=== PATIENT | female | born 1990 | race Caucasian/White ===

== ENCOUNTER 2021-10-09 23:02 | Emergency (ER) | payer OTHER ==
[~2021-10-09] VITALS: Ht 188 cm; Wt 90.7 kg
[2021-10-09] MEDS ORDERED: FINASTERIDE1 MG PO (23:32)
[2021-10-09] MEDS ORDERED: ALDACTONE100 MG PO (23:32)
[2021-10-09] MEDS ORDERED: ESTR2 PO (23:32)
[2021-10-09] MEDS ORDERED: VITAMIN D310 MC4 (23:33)
[2021-10-10 00:01] LABS: BASOPHILS ABSOLUTE AUTO 0.06 K/mm3 (0.00-0.23); BASOPHILS PERCENT AUTO 1 % (0-2); EOSINOPHILS ABSOLUTE AUTO 0.12 K/mm3 (0.00-0.68); EOSINOPHILS PERCENT AUTO 1 % (0-6); Hematocrit 35.4 % (33.0-51.0); Hemoglobin 11.6 g/dL (11.5-16.0); IMMATURE GRAN ABSOLUTE AUTO 0.03 K/mm3 (0.00-0.10); IMMATURE GRAN PERCENT AUTO 0 % (0-1); LYMPHOCYTES ABSOLUTE AUTO 2.13 K/mm3 (0.84-5.20); LYMPHOCYTES PERCENT AUTO 19 % (21-46); MONOCYTES ABSOLUTE AUTO 0.71 K/mm3 (0.16-1.47); MONOCYTES PERCENT AUTO 6 % (4-13); Mean Corpuscular HGB 30.2 pg (26.0-34.0); Mean Corpuscular HGB Conc 32.8 g/dL (31.5-36.5); Mean Corpuscular Volume 92 fL (80-100); Mean Platelet Volume 10.1 fL (9.1-12.4); NEUTROPHILS ABSOLUTE AUTO 8.17 K/mm3 (1.96-9.15); NEUTROPHILS PERCENT AUTO 73 % (41-73); Platelet Count 341 K/mm3 (150-400); RDW Coefficient Variation 15.2 % (11.7-14.2); RDW Standard Deviation 51.9 fL (35.1-46.3); Red Blood Cell Count 3.84 M/mm3 (3.80-5.20); White Blood Cell Count 11.22 K/mm3 (4.00-11.30)
[2021-10-10 00:21] LABS: Alanine Aminotransfer (ALT/SGP 29 U/L (12-78); Albumin, Blood 3.8 g/dL (3.4-5.0); Alk Phos 382 U/L (50-136); Anion Gap 9 mmol/L (6-16); Aspartate Aminotrans (AST/SGOT 14 U/L (12-37); Bilirubin, Total 0.5 mg/dL (0.1-1.0); Blood Urea Nitrogen 12 mg/dL (8-24); Bun/Creatinine Ratio 16.9 (12.0-20.0); CO2, Blood 24 mmol/L (21-32); Calcium, Blood 9.6 mg/dL (8.5-10.1); Chloride, Blood 103 mmol/L (98-108); Creatinine, Blood 0.71 mg/dL (0.40-1.00); Globulin, Blood 3.7 g/dL (2.2-4.0); Glomerular Filtration Rate >60 (60-); Glucose, Blood 117 mg/dL (70-99); Potassium, Blood 3.9 mmol/L (3.5-5.5); Sodium, Blood 136 mmol/L (136-145); Total Protein, Blood 7.5 g/dL (6.4-8.2)
[2021-10-10 00:26] LABS: Source, Urine Clean Catch
[2021-10-10 00:28] LABS: Appearance, Urine Clear (Clear); Bilirubin, Urine Neg (Neg); Blood, Urine Neg (Neg); Color, Urine Yellow (P-Yellow); Glucose Qualitative, Urine Neg (Neg); Ketones, Urine Neg (Neg); Leukocyte Esterase, Urine Neg (Neg); Nitrite, Urine Neg (Neg); Protein, Urine Neg (Neg); Specific Gravity, Urine 1.005 (1.003-1.022); Urobilinogen, Urine NORM (Normal); pH, Urine 6.5 (5.0-8.0)
== END 2021-10-10 00:51 | disposition home or self-care (01) ==
LOC: ER 23:02
PROVIDERS: Physician Assistant
DX: R33.9 Retention of urine, unspecified (principal)
CPT/HCPCS: 51702; 51798; 80053; 81003; 85025; 99283-25

== ENCOUNTER 2021-10-12 20:13 | Emergency (ER) | payer OTHER ==
[~2021-10-12] VITALS: Ht 188 cm; Wt 87.1 kg
[~2021-10-12 20:13] MED LIST: ALDACTONE100 MG PO; ESTR2 PO; FINASTERIDE1 MG PO; VITAMIN D310 MC4
[2021-10-12 21:26] LABS: Source, Urine Foley catheter
[2021-10-12 21:28] LABS: Bilirubin, Urine Neg (Neg); Blood, Urine 2+ (Neg); Glucose Qualitative, Urine Neg (Neg); Ketones, Urine 1+ (Neg); Leukocyte Esterase, Urine 2+ (Neg); Nitrite, Urine Neg (Neg); Protein, Urine 1+ (Neg); Specific Gravity, Urine 1.025 (1.003-1.022); Urobilinogen, Urine NORM (Normal)
[2021-10-12 21:33] LABS: Appearance, Urine Clear (Clear); Color, Urine Yellow (P-Yellow)
[2021-10-12 21:34] LABS: Amorphous Light (0-Heavy); Bacteria Few /hpf; Mucus Light (0-Heavy); Squamous Epithelial Cells Rare /hpf (Few)
== END 2021-10-12 22:05 | disposition home or self-care (01) ==
LOC: ER 20:13
PROVIDERS: Physician Assistant
DX: T83.091A Other mechanical complication of indwelling urethral catheter, initial encounter (principal); I95.9 Hypotension, unspecified; I50.9 Heart failure, unspecified; Z79.899 Other long term (current) drug therapy
CPT/HCPCS: 81001; 87086; 99283

== ENCOUNTER 2021-10-14 03:03 | Emergency (ER) | payer OTHER ==
[~2021-10-14] VITALS: Ht 188 cm; Wt 90.7 kg
[2021-10-14 03:17] LABS: Source, Urine Voided
[2021-10-14 03:29] LABS: Bilirubin, Urine Neg (Neg); Blood, Urine Neg (Neg); Glucose Qualitative, Urine Neg (Neg); Ketones, Urine 1+ (Neg); Leukocyte Esterase, Urine Neg (Neg); Nitrite, Urine Neg (Neg); Protein, Urine 1+ (Neg); Specific Gravity, Urine 1.015 (1.003-1.022); Urobilinogen, Urine 1+ (Normal)
[2021-10-14 03:36] LABS: Appearance, Urine Clear (Clear); Color, Urine Yellow (P-Yellow)
[2021-10-14] MEDS ORDERED: Miralax17 GM PO (03:46)
[2021-10-14] MEDS ORDERED: Fleet Enema132 ML PR (03:46)
[2021-10-14] MEDS ORDERED: Pyridium100 MG PO (03:46)
[2021-10-18] MEDS ORDERED: DOC250 PO (00:09)
[2021-10-18] MEDS ORDERED: MIRALAX17 GM PO (00:09)
[2021-10-18] MEDS ORDERED: MAGCIT300 PO (00:09)
[2021-10-18] MEDS ORDERED: SENNA LAXATIVE8.6 MG PO (00:09)
== END 2021-10-14 05:32 | disposition home or self-care (01) ==
LOC: ER 03:03
PROVIDERS: Emergency Medicine
DX: K59.03 Drug induced constipation (principal); T40.605A Adverse effect of unspecified narcotics, initial encounter; R30.0 Dysuria
CPT/HCPCS: 99283; A9270

== ENCOUNTER 2021-10-18 07:28 | Emergency (ER) | payer OTHER ==
[~2021-10-18] VITALS: Ht 188 cm; Wt 87.1 kg
[~2021-10-18 07:28] MED LIST changes: +DOC250 PO; +Fleet Enema132 ML PR; +MAGCIT300 PO; +MIRALAX17 GM PO; +Miralax17 GM PO; +Pyridium100 MG PO; +SENNA LAXATIVE8.6 MG PO
== END 2021-10-18 09:50 | disposition home or self-care (01) ==
LOC: ER 07:28
DX: R33.9 Retention of urine, unspecified (principal); I95.9 Hypotension, unspecified; I50.9 Heart failure, unspecified; Z79.899 Other long term (current) drug therapy
CPT/HCPCS: 51702; 51798; 99283-25

== ENCOUNTER → 2021-10-24 | Outpatient (CLI) | payer OTHER ==
[~2021-10-24] MED LIST changes: +DOXY100 PO; +ELIQUIS2.5 M1 PO; +FLUO10 PO; +SPIRONOLACTONE25 MG PO; +TAMSULOSIN HCL0.4 M1 PO; +VITAMIN D310 MC4 PO
== END | disposition home or self-care (01) ==
LOC: LAB SHORT 14:37
DX: L08.9 Local infection of the skin and subcutaneous tissue, unspecified (principal)
CPT/HCPCS: 87070; 87205

== ENCOUNTER 2021-10-25 23:21 | Observation (INO) | payer OTHER ==
[~2021-10-25] VITALS: Ht 188 cm; Wt 85.3 kg
[~2021-10-25 23:21] MED LIST changes: -DOXY100 PO; -ELIQUIS2.5 M1 PO; -FLUO10 PO; -SPIRONOLACTONE25 MG PO; -TAMSULOSIN HCL0.4 M1 PO; -VITAMIN D310 MC4 PO
[2021-10-26 00:23] LABS: BASOPHILS ABSOLUTE AUTO 0.04 K/mm3 (0.00-0.23); BASOPHILS PERCENT AUTO 1 % (0-2); EOSINOPHILS ABSOLUTE AUTO 0.08 K/mm3 (0.00-0.68); EOSINOPHILS PERCENT AUTO 1 % (0-6); Hematocrit 38.3 % (33.0-51.0); Hemoglobin 12.1 g/dL (11.5-16.0); IMMATURE GRAN ABSOLUTE AUTO 0.01 K/mm3 (0.00-0.10); IMMATURE GRAN PERCENT AUTO 0 % (0-1); LYMPHOCYTES ABSOLUTE AUTO 1.78 K/mm3 (0.84-5.20); LYMPHOCYTES PERCENT AUTO 24 % (21-46); MONOCYTES ABSOLUTE AUTO 0.52 K/mm3 (0.16-1.47); MONOCYTES PERCENT AUTO 7 % (4-13); Mean Corpuscular HGB 30.3 pg (26.0-34.0); Mean Corpuscular HGB Conc 31.6 g/dL (31.5-36.5); Mean Corpuscular Volume 96 fL (80-100); Mean Platelet Volume 10.7 fL (9.1-12.4); NEUTROPHILS ABSOLUTE AUTO 5.08 K/mm3 (1.96-9.15); NEUTROPHILS PERCENT AUTO 68 % (41-73); Platelet Count 269 K/mm3 (150-400); RDW Coefficient Variation 14.3 % (11.7-14.2); RDW Standard Deviation 50.4 fL (35.1-46.3); Red Blood Cell Count 3.99 M/mm3 (3.80-5.20); White Blood Cell Count 7.51 K/mm3 (4.00-11.30)
[2021-10-26 00:49] LABS: Alanine Aminotransfer (ALT/SGP 22 U/L (12-78); Albumin, Blood 3.8 g/dL (3.4-5.0); Albumin/Globulin Ratio 1.1 (0.8-1.8); Alk Phos 221 U/L (50-136); Anion Gap 9 mmol/L (6-16); Aspartate Aminotrans (AST/SGOT 9 U/L (12-37); Bilirubin, Total 0.2 mg/dL (0.1-1.0); Blood Urea Nitrogen 7 mg/dL (8-24); CO2, Blood 21 mmol/L (21-32); Chloride, Blood 108 mmol/L (98-108); Creatinine, Blood 0.77 mg/dL (0.40-1.00); Ethanol (Alcohol), Blood, Med <3 mg/dL; Globulin, Blood 3.6 g/dL (2.2-4.0); Glomerular Filtration Rate >60 (60-); Glucose, Blood 133 mg/dL (70-99); Potassium, Blood 3.2 mmol/L (3.5-5.5); Salicylate 22.3 mg/dL (2.8-20.0); Sodium, Blood 138 mmol/L (136-145); Total Protein, Blood 7.4 g/dL (6.4-8.2)
[2021-10-26 00:50] LABS: Acetaminophen, Random 52.5 ug/mL (10.0-30.0)
[2021-10-26 01:08] LABS: Source, Urine Voided
[2021-10-26 01:12] LABS: Bilirubin, Urine Neg (Neg); Blood, Urine Neg (Neg); Glucose Qualitative, Urine Neg (Neg); Ketones, Urine Neg (Neg); Leukocyte Esterase, Urine Neg (Neg); Nitrite, Urine Neg (Neg); Protein, Urine Neg (Neg); Urobilinogen, Urine NORM (Normal)
[2021-10-26 01:15] LABS: Appearance, Urine Clear (Clear); Color, Urine Pale Yellow (P-Yellow)
[2021-10-26 01:23] LABS: U Amphetamine Screen Not Detected; U Barbituate Screen Not Detected; U Benzodiazapine Screen Not Detected; U Buprenorphine Screen Not Detected; U Cannabinoids Screen Not Detected; U Cocaine Screen Not Detected; U Methadone Screen Not Detected; U Methamphetamine Screen Not Detected; U Opiates Screen Not Detected; U Oxycodone Screen Not Detected; U Phencyclidine Screen Not Detected; U Propoxyphene Screen Not Detected
[2021-10-26 02:34] LABS: Acetaminophen, Random 28.2 ug/mL (10.0-30.0); Salicylate 19.9 mg/dL (2.8-20.0)
[2021-10-26 06:20] LABS: Influenza A, PCR NEGATIVE (NEGATIVE); Influenza B, PCR NEGATIVE (NEGATIVE); Resp Syncytial Virus, PCR NEGATIVE (NEGATIVE); SARS-Cov-2 (COVID-19) PCR, MMC NEGATIVE (NEGATIVE)
[2021-10-26] MEDS ORDERED: DOXY100 PO (08:39)
[2021-10-27] MEDS ORDERED: Pyridium100 MG PO (01:49)
[2021-10-27] MEDS ORDERED: TAMSULOSIN HCL0.4 M1 PO (01:50)
[2021-10-27] MEDS ORDERED: ELIQUIS2.5 M1 PO (01:50)
[2021-10-27] MEDS ORDERED: SPIRONOLACTONE25 MG PO (01:50)
[2021-10-27] MEDS ORDERED: FLUO10 PO (01:50)
[2021-10-27] MEDS ORDERED: VITAMIN D310 MC4 PO (01:50)
== END 2021-10-27 15:47 ==
LOC: ER 23:21 → EOR 23:22
PROVIDERS: ADMIT Emergency Medicine
DX: F33.2 Major depressive disorder, recurrent severe without psychotic features (principal); T39.1X2A Poisoning by 4-Aminophenol derivatives, intentional self-harm, initial encounter; F42.9 Obsessive-compulsive disorder, unspecified; F41.1 Generalized anxiety disorder; I50.9 Heart failure, unspecified; Z20.822 Contact with and (suspected) exposure to COVID-19
CPT/HCPCS: 0241U; 51701; 80053; 81003; 85025; 86592; 99285-25; A9270; G0378; G0480; Q3014

== ENCOUNTER 2021-11-10 21:28 | Inpatient (IN) | payer OTHER ==
[~2021-11-10] VITALS: Ht 188 cm; Wt 85.4 kg
[~2021-11-10 21:28] MED LIST changes: +DOXY100 PO; +ELIQUIS2.5 M1 PO; +FLUO10 PO; +SPIRONOLACTONE25 MG PO; +TAMSULOSIN HCL0.4 M1 PO; +VITAMIN D310 MC4 PO
[2021-11-10 21:49] LABS: BASOPHILS ABSOLUTE AUTO 0.06 K/mm3 (0.00-0.23); BASOPHILS PERCENT AUTO 1 % (0-2); EOSINOPHILS ABSOLUTE AUTO 0.03 K/mm3 (0.00-0.68); EOSINOPHILS PERCENT AUTO 0 % (0-6); Hematocrit 40.7 % (33.0-51.0); Hemoglobin 13.3 g/dL (11.5-16.0); IMMATURE GRAN ABSOLUTE AUTO 0.02 K/mm3 (0.00-0.10); IMMATURE GRAN PERCENT AUTO 0 % (0-1); LYMPHOCYTES ABSOLUTE AUTO 1.48 K/mm3 (0.84-5.20); LYMPHOCYTES PERCENT AUTO 17 % (21-46); MONOCYTES ABSOLUTE AUTO 0.56 K/mm3 (0.16-1.47); MONOCYTES PERCENT AUTO 6 % (4-13); Mean Corpuscular HGB 30.2 pg (26.0-34.0); Mean Corpuscular HGB Conc 32.7 g/dL (31.5-36.5); Mean Corpuscular Volume 93 fL (80-100); Mean Platelet Volume 10.3 fL (9.1-12.4); NEUTROPHILS ABSOLUTE AUTO 6.57 K/mm3 (1.96-9.15); NEUTROPHILS PERCENT AUTO 75 % (41-73); Platelet Count 307 K/mm3 (150-400); RDW Coefficient Variation 14.1 % (11.7-14.2); RDW Standard Deviation 47.8 fL (35.1-46.3); White Blood Cell Count 8.72 K/mm3 (4.00-11.30)
[2021-11-10 22:19] LABS: Alanine Aminotransfer (ALT/SGP 25 U/L (12-78); Albumin/Globulin Ratio 1.1 (0.8-1.8); Alk Phos 162 U/L (50-136); Anion Gap 12 mmol/L (6-16); Aspartate Aminotrans (AST/SGOT 18 U/L (12-37); Bilirubin, Total 0.2 mg/dL (0.1-1.0); Blood Urea Nitrogen 11 mg/dL (8-24); Bun/Creatinine Ratio 15.1 (12.0-20.0); CO2, Blood 20 mmol/L (21-32); Calcium, Blood 8.9 mg/dL (8.5-10.1); Chloride, Blood 104 mmol/L (98-108); Creatinine, Blood 0.73 mg/dL (0.40-1.00); Ethanol (Alcohol), Blood, Med 24 mg/dL; Globulin, Blood 3.7 g/dL (2.2-4.0); Glomerular Filtration Rate >60 (60-); Glucose, Blood 104 mg/dL (70-99); Potassium, Blood 3.9 mmol/L (3.5-5.5); Salicylate 26.7 mg/dL (2.8-20.0); Sodium, Blood 136 mmol/L (136-145); Thyroxine (T4) 10.2 ug/dL (4.8-13.9); Total Protein, Blood 7.7 g/dL (6.4-8.2)
[2021-11-10 22:21] LABS: Source, Urine Condom Cath
[2021-11-10 22:22] LABS: Acetaminophen, Random <2.0 ug/mL (10.0-30.0)
[2021-11-10 22:41] LABS: Bilirubin, Urine Neg (Neg); Blood, Urine Neg (Neg); Glucose Qualitative, Urine Neg (Neg); Ketones, Urine Neg (Neg); Leukocyte Esterase, Urine Neg (Neg); Nitrite, Urine Neg (Neg); Protein, Urine Neg (Neg); Urobilinogen, Urine NORM (Normal)
[2021-11-10 22:43] LABS: Base Excess Venous -3.3 mmol/L; Bicarbonate Venous 22.6 mmol/L (24.0-30.0); PCO2 Venous 29.4 mmHg (38-42); PO2 Venous 130 mmHg (38-42); pH Blood Venous 7.45 (7.34-7.37)
[2021-11-10 22:46] LABS: Appearance, Urine Clear (Clear); Color, Urine Yellow (P-Yellow)
[2021-11-10 22:53] LABS: U Amphetamine Screen Not Detected; U Barbituate Screen Not Detected; U Benzodiazapine Screen Not Detected; U Buprenorphine Screen Not Detected; U Cannabinoids Screen Not Detected; U Cocaine Screen Not Detected; U Methadone Screen Not Detected; U Methamphetamine Screen Not Detected; U Opiates Screen Not Detected; U Oxycodone Screen Not Detected; U Phencyclidine Screen Not Detected; U Propoxyphene Screen Not Detected
[2021-11-11 02:08] LABS: Anion Gap 7 mmol/L (6-16); Blood Urea Nitrogen 11 mg/dL (8-24); Bun/Creatinine Ratio 14.6 (12.0-20.0); CO2, Blood 22 mmol/L (21-32); Calcium, Blood 8.9 mg/dL (8.5-10.1); Chloride, Blood 107 mmol/L (98-108); Creatinine, Blood 0.75 mg/dL (0.40-1.00); Glomerular Filtration Rate >60 (60-); Glucose, Blood 107 mg/dL (70-99); Potassium, Blood 4.2 mmol/L (3.5-5.5); Sodium, Blood 136 mmol/L (136-145)
[2021-11-11 02:41] LABS: Base Excess Venous -2.3 mmol/L; Bicarbonate Venous 22.8 mmol/L (24.0-30.0)
--- NOTE | 2021-11-11 03:20 | NUR ---
ASSUMED CARE THIS RN ASSUMED CARE FOR THIS PATIENT UPON ARRIVAL TO ICU 9 @ 0320. BICARB AND KCL GTT AND UNOPENED LIQUID CHARCOAL ARRIVED WITH PATIENT. ROOM CLEARED OF HAZARDS AND 1:1 SITTER SET UP. PATIENT A&O X 3/3. FOLLOWS COMMANDS AND TRANSFERS ON OWN TO BED. CURRENTLY COMPLAINING OF NAUSEA. DENIES PAIN. NSR. REPORT COMPLETED WITH ED RN.
[2021-11-11 04:17] LABS: BASOPHILS ABSOLUTE AUTO 0.06 K/mm3 (0.00-0.23); BASOPHILS PERCENT AUTO 1 % (0-2); EOSINOPHILS ABSOLUTE AUTO 0.01 K/mm3 (0.00-0.68); EOSINOPHILS PERCENT AUTO 0 % (0-6); Hematocrit 39.5 % (33.0-51.0); Hemoglobin 12.9 g/dL (11.5-16.0); IMMATURE GRAN ABSOLUTE AUTO 0.03 K/mm3 (0.00-0.10); IMMATURE GRAN PERCENT AUTO 0 % (0-1); LYMPHOCYTES ABSOLUTE AUTO 1.98 K/mm3 (0.84-5.20); LYMPHOCYTES PERCENT AUTO 20 % (21-46); MONOCYTES ABSOLUTE AUTO 0.64 K/mm3 (0.16-1.47); MONOCYTES PERCENT AUTO 6 % (4-13); Mean Corpuscular HGB 29.9 pg (26.0-34.0); Mean Corpuscular HGB Conc 32.7 g/dL (31.5-36.5); Mean Corpuscular Volume 92 fL (80-100); Mean Platelet Volume 10.2 fL (9.1-12.4); NEUTROPHILS ABSOLUTE AUTO 7.41 K/mm3 (1.96-9.15); NEUTROPHILS PERCENT AUTO 73 % (41-73); Platelet Count 292 K/mm3 (150-400); RDW Coefficient Variation 14.1 % (11.7-14.2); RDW Standard Deviation 47.9 fL (35.1-46.3); Red Blood Cell Count 4.31 M/mm3 (3.80-5.20); White Blood Cell Count 10.13 K/mm3 (4.00-11.30)
[2021-11-11 04:33] LABS: pH Blood Venous 7.47 (7.34-7.37)
[2021-11-11 04:34] LABS: Base Excess Venous -1.8 mmol/L; Bicarbonate Venous 23.7 mmol/L (24.0-30.0); PCO2 Venous 30.2 mmHg (38-42); PO2 Venous 179 mmHg (38-42)
[2021-11-11 04:56] LABS: Alanine Aminotransfer (ALT/SGP 21 U/L (12-78); Albumin, Blood 3.7 g/dL (3.4-5.0); Albumin/Globulin Ratio 1.1 (0.8-1.8); Alk Phos 154 U/L (50-136); Anion Gap 7 mmol/L (6-16); Aspartate Aminotrans (AST/SGOT 11 U/L (12-37); Bilirubin, Total 0.2 mg/dL (0.1-1.0); Blood Urea Nitrogen 10 mg/dL (8-24); Bun/Creatinine Ratio 12.9 (12.0-20.0); CO2, Blood 22 mmol/L (21-32); Calcium, Blood 8.8 mg/dL (8.5-10.1); Chloride, Blood 109 mmol/L (98-108); Creatinine, Blood 0.78 mg/dL (0.40-1.00); Globulin, Blood 3.4 g/dL (2.2-4.0); Glomerular Filtration Rate >60 (60-); Glucose, Blood 116 mg/dL (70-99); Potassium, Blood 3.7 mmol/L (3.5-5.5); Sodium, Blood 138 mmol/L (136-145); Total Protein, Blood 7.1 g/dL (6.4-8.2)
--- NOTE | 2021-11-11 07:27 | NUR ---
SHIFT SUMMARY PATIENT REMAINS ON BICARB 150MEQ GTT @ 200ML/HR. PATIENT SLEPT FOR REMAINDER OF SHIFT AFTER ASSESSMENT COMPLETED. STAND BY ASSIST TRANSFERRED TO BEDSIDE COMMODE ONCE WITH 275ML URINE OUT. ONE EPISODE OF VOMITING UPON ARRIVAL TO ICU FROM ED. ZOFRAN 4MG IV GIVEN WITH RESOLUTION OF NAUSEA AND VOMITING. ROOM WAS CLEARED OF HAZARDS AND PLACED ON 1:1 OBSERVATION BY STAFF. POISON CONTROL CONTACTED AND RECOMMENDATIONS RECEIVED AND PLACED IN CHART. DR. RAMON CALLED THIS MORNING WITH NEW ORDERS FOR LIQUID CHARCOAL PO ONCE AND KCL 40MEQ IV; CONFIRMED HE PLACED THE ORDERS. NO OTHER MAJOR CHANGES DURING SHIFT.
--- NOTE | 2021-11-11 08:03 | NUR ---
DR. RAMON UPDATED VIA TELEPHONE OF POISON CONTROLS PHARMACIST RECOMENDATIONS OF ADDING 40MEQ OF POTASSIUM INTO BICARB DRIP AND TO CHECK URINE PH'S.
[2021-11-11 08:18] LABS: Bicarbonate Venous 26.7 mmol/L (24.0-30.0); pH Blood Venous 7.51 (7.34-7.37)
--- NOTE | 2021-11-11 09:52 | NUR ---
DR. RAMON NOTIFIED OF INCORRECT HOME MED DOSES ORDERED. HEAD BANDER AND LINER OPERATOR NOTIFIED OF PYXIS NOT BEING LOADED WITH MEDS. POISON CONTROL UPDATED ON 0800 LABS AND CURRENT INTERVENTIONS RUNNING, THEY ARE RECOMENDING TO STOP BICARB DRIP AFTER ASPRIN LEVEL REACHES LESS THAN 30, THEN NOTE THE TIME. THEY ARE ALSO RECOMENDING TO REPEAT LEVELS OF ASPIRIN AT 6 AND 12 HOURS POST BICARB DRIP STOP TIME DUE TO RISK OF THE ASPIRIN CLUMBING IN THE GI TRACT AND RELEASING MORE LATER. 0800 LABS K 3.7 ASA 31.1 VBG pH 7.51 VBG HCO3 26
--- NOTE | 2021-11-11 10:41 | NUR ---
BICARB STOPPED AT 1040
[2021-11-11 12:16] LABS: Base Excess Venous 3.2 mmol/L; Bicarbonate Venous 27.7 mmol/L (24.0-30.0); PCO2 Venous 32.1 mmHg (38-42); pH Blood Venous 7.52 (7.34-7.37)
--- NOTE | 2021-11-11 12:34 | NUR ---
PRECOMMITMENT SENIOR DIRECTOR UPDATED, WILL COME ASSESS PATIENT 11/12/21
--- NOTE | 2021-11-11 17:06 | NUR ---
SUMMARY PT ON ROOM AIR, NO LONGER EXPERIENCING RINGING IN THE EARS. 100 MEQ OF POTASSIUM REPLACEMENT TODAY. AOX4, PT AT BASELINE. NOT ACTIVELY SUICIDAL, DECREASED TO MODERATE SI RISK, CAMERA ON. RECOMENDATIONS FOR INPATIENT PSYCH BY JENNIFER. BICARB DRIP STOPPED AT 1040. POISON CONTROL TO CALL AND ASK FOR LAST ASA RESULTS AT 2300 TONIGHT.
[2021-11-11 17:29] LABS: Base Excess Venous 2.4 mmol/L; Bicarbonate Venous 27.1 mmol/L (24.0-30.0); PCO2 Venous 30.7 mmHg (38-42); pH Blood Venous 7.52 (7.34-7.37)
--- NOTE | 2021-11-11 20:00 | NUR ---
ASSUMPTION OF CARE RECEIVED REPORT AT 1900. PT CURRENTLY SITTING UP AT BEDSIDE EATING DINNER. VSS. SHE DENIES ANY THOUGHTS OF SUICIDE AT THIS TIME, BUT DOES THINK ABOUT HURTING HERSELF OFTEN. SHE STATES SHE LIKES BEING IN THE HOSPITAL BECAUSE SHE FEELS SAFE. MOST RECENT SALICYLATE LEVEL OF 8.3 AND POTASSIUM OF 4.0. PER POISON CONTROL, WE WILL REPEAT LEVELS IN 2 HOURS AND ADMINISTER ANOTHER DOSE OF ACTIVATED CHARCOAL. PT IS ABLE TO AMBULATE IN ROOM INDEPENDENTLY, STEADY GAIT. SHE IS A/O X4, PLEASANT AND COOPERATIVE, AND ABLE TO COMMUNICATE NEEDS WELL. USING BEDSIDE COMMODE INDEPENDENT. 20G IV TO RIGHT FOREARM, SL. ORDERS REVIEWED AND WILL TREAT PRESCRIBED.
[2021-11-11 20:09] LABS: Salicylate 8.3 mg/dL (2.8-20.0)
[2021-11-11 22:01] LABS: Base Excess Venous 2.2 mmol/L; Bicarbonate Venous 26.3 mmol/L (24.0-30.0); PCO2 Venous 38.5 mmHg (38-42); PO2 Venous 72.2 mmHg (38-42); pH Blood Venous 7.44 (7.34-7.37)
--- NOTE | 2021-11-11 23:00 | NUR ---
POISON CONTROL 1936- SALICYLATE OF 8.3, POTASSIUM OF 4.0. DISCUSSED WITH ELENI CARRILLO, AT POISON CONTROL AND WILL REPEAT LEVELS AGAIN IN 2 HOURS. SHE ALSO RECOMMENDED ANOTHER DOSE OF ACTIVATED CHARCOAL D/T SASLICYLATE LEVELS RISING. CHARCOAL ORDERED. 2148- SALICYLATE OF 6.0 AND POTASSIUM OF 4.1. RELAYED TO ELENI CARRILLO, WITH POISON CONTROL. WILL REPEAT LEVELS AGAIN IN 2 HOURS.
--- NOTE | 2021-11-12 | NUR ---
CALL TO POISON CONTROL RE: 2343 SALICYLATE OF 4.1 AND POTASSIUM OF 4.1. PER POISON CONTROL, NO MORE Q2H REPEATS ARE NECESSARY. PT REMAINS ASYMPTOMATIC AND VSS AT THIS POINT.
[2021-11-12 06:07] LABS: Base Excess Venous 0.3 mmol/L; PO2 Venous 104 mmHg (38-42); pH Blood Venous 7.46 (7.34-7.37)
[2021-11-12 06:14] LABS: BASOPHILS ABSOLUTE AUTO 0.05 K/mm3 (0.00-0.23); BASOPHILS PERCENT AUTO 1 % (0-2); EOSINOPHILS ABSOLUTE AUTO 0.11 K/mm3 (0.00-0.68); EOSINOPHILS PERCENT AUTO 1 % (0-6); Hematocrit 40.8 % (33.0-51.0); Hemoglobin 12.9 g/dL (11.5-16.0); IMMATURE GRAN ABSOLUTE AUTO 0.02 K/mm3 (0.00-0.10); IMMATURE GRAN PERCENT AUTO 0 % (0-1); LYMPHOCYTES PERCENT AUTO 24 % (21-46); MONOCYTES ABSOLUTE AUTO 0.65 K/mm3 (0.16-1.47); MONOCYTES PERCENT AUTO 7 % (4-13); Mean Corpuscular HGB 30.6 pg (26.0-34.0); Mean Corpuscular HGB Conc 31.6 g/dL (31.5-36.5); Mean Platelet Volume 10.2 fL (9.1-12.4); NEUTROPHILS ABSOLUTE AUTO 6.34 K/mm3 (1.96-9.15); NEUTROPHILS PERCENT AUTO 68 % (41-73); Platelet Count 262 K/mm3 (150-400); RDW Coefficient Variation 14.4 % (11.7-14.2); RDW Standard Deviation 51.8 fL (35.1-46.3); Red Blood Cell Count 4.22 M/mm3 (3.80-5.20); White Blood Cell Count 9.37 K/mm3 (4.00-11.30)
[2021-11-12 06:17] LABS: Mean Corpuscular Volume 97 fL (80-100)
[2021-11-12 06:26] LABS: Alanine Aminotransfer (ALT/SGP 27 U/L (12-78); Albumin, Blood 3.5 g/dL (3.4-5.0); Albumin/Globulin Ratio 1.1 (0.8-1.8); Alk Phos 146 U/L (50-136); Anion Gap 7 mmol/L (6-16); Aspartate Aminotrans (AST/SGOT 10 U/L (12-37); Bilirubin, Total 0.2 mg/dL (0.1-1.0); Blood Urea Nitrogen 10 mg/dL (8-24); Bun/Creatinine Ratio 13.9 (12.0-20.0); CO2, Blood 24 mmol/L (21-32); Chloride, Blood 106 mmol/L (98-108); Creatinine, Blood 0.72 mg/dL (0.40-1.00); Globulin, Blood 3.2 g/dL (2.2-4.0); Glomerular Filtration Rate >60 (60-); Glucose, Blood 93 mg/dL (70-99); Potassium, Blood 4.1 mmol/L (3.5-5.5); Salicylate <1.7 mg/dL (2.8-20.0); Sodium, Blood 137 mmol/L (136-145); Total Protein, Blood 6.7 g/dL (6.4-8.2)
--- NOTE | 2021-11-12 08:58 | NUR ---
DR RAMON IN SEEING PATIENT NOW, MAKES NEEDS KNOWN, CALL LIGHT WITH IN REACH, PLEASANT TO CARE, DENIES ANY PRESENT SI
--- NOTE | 2021-11-12 11:27 | NUR ---
fernandez from [facility] rounded on patient for resources and evaluation, no changes to treatment
--- NOTE | 2021-11-12 18:32 | NUR ---
ALERT AND ORIENTED, MAKES NEEDS KNOWN, STEADY GAIT TO BSC, MOTHER IN VISITING NOW, CALL LIGHT WITH IN REACH, VIDEO MONITORING ON, MODERATE SI PRECAUTIONS. 98% ON RA, LS CTA, CLEARS CONGESTION WITH COUGH. BSC TO VOID, CLEAR YELLOW URINE. SKIN CDI. INCREASED PM TRAZADONE DOSE TO [address] PYLE. [facility] COUNSELER VISITED WITH PATIENT, LOOKING FOR POSSIBLE PLACEMENT. PATIENTS MOOD HAS BEEN HAPPY AND COOPERATIVE, WILL RELAY TO PM, WCTM
--- NOTE | 2021-11-12 19:30 | NUR ---
DWAYNE IS ASKING FOR SOMETHING FOR HEARTBURN AND CONSTIPATION. HOSPITALIST CALLED AND ORDERS RECEIVED. PT IS VERY COOPERATIVE, TALKING AND FORTH COMING WITH INFORMATION. SHE STATES THAT PRIOR TO HER MOM VISITING SHE WAS DEPRESSED AND HAD THOUGHTS OF HURTING HERSELF. SHE WAS SHARING ABOUT HER EXPERIENCES AND THE RECENT ATTEMPTS AT HURTING HERSELF, BUT SHE IS ALSO TALKING ABOUT MAKING A NEW START [place] WITH HER PARENTS. SHE IS ABLE TO TAKE IN HER OWN FOOD AND FLUIDS, SHE DENIES ANY COMPLAINTS OTHER THAN WHAT IS STATED.
--- NOTE | 2021-11-12 23:57 | NUR ---
DWAYNE IS QUIETLY RESTING ON HER SIDE WITH THE MUSIC PLAYING ON THE TELEVISION. NO CHANGES. NO COMPLAINTS.
--- NOTE | 2021-11-13 06:25 | NUR ---
DWAYNE HAS BEEN SLEEPING SINCE TAKING HER PM MEDS, VSS, UP TO BS AND BEEN APPROPRIATE AND IN GOOD SPIRITS. WILL CONTINUE TO MONITOR AND REPORT OFF TO NEXT SHIFT WHEN ABLE.
--- NOTE | 2021-11-13 07:34 | NUR ---
ASSUMED CARE: PT RESTING QUIETLY, NSR IN 60S AT THIS TIME. RA, CAMERA IN PLACE. NO ACUTE NEEDS AT THIS TIME.
--- NOTE | 2021-11-13 09:02 | NUR ---
CARE MANAGEMENT MADE AWARE THAT PT IS RECOMMENDED FOR INPATIENT PSYCH. WELT EDGE ROUNDER STATES SHE WILL START MAKING CALLS FOR TRANSFER
--- NOTE | 2021-11-13 12:57 | NUR ---
SPOKE WITH SKEIN BLEACHER WHO STATED TO EXPECT PHONE CALLS FROM A FEW IN PATIENT PSYCH FACILITIES THAT ARE TRYING TO PLACE PT. [facility] CALLED FOR THIS PURPOSE. AWAITING COVID TEST TO BE COMPLETED AND WILL CALL THEM WITH RESULTS WHEN AVAILABLE
[2021-11-13 14:05] LABS: Influenza A, PCR NEGATIVE (NEGATIVE); Influenza B, PCR NEGATIVE (NEGATIVE); Resp Syncytial Virus, PCR NEGATIVE (NEGATIVE); SARS-Cov-2 (COVID-19) PCR, MMC NEGATIVE (NEGATIVE)
--- NOTE | 2021-11-13 14:23 | NUR ---
[facility] NOTIFIED OF PT'S COVID RESULT. RESULT FAXED TO THEM WELL
[2021-11-13] MEDS ORDERED: Calcium Carbon500 MG PO (17:49)
[2021-11-13] MEDS ORDERED: MIRALAX17 GM PO (17:49)
[2021-11-13] MEDS ORDERED: SENN187 PO (17:49)
[2021-11-13] MEDS ORDERED: TRAZ100 PO (17:50)
--- NOTE | 2021-11-13 17:58 | NUR ---
SHIFT SUMMARY: DR RAMON CAME TO SEE PT AND STATED THAT DOC TO DOC WAS DONE AND PT WAS ACCEPTED AT [facility] IN PATIENT PSYCH. PT AWARE. PREPARER MAKING DEPARTMENT CALLED TO SECURE TRANSPORT BUT NO ONE WAS AVAILABLE TO TAKE PT UNTIL TOMORROW. [facility] AGREED TO SAVE BED FOR PT UNTIL TOMORROW. TRANSPORT WILL CALL NIGHT RN TO SET UP TIME. PT AWARE OF DELAY AND HAS CONTACTED FAMILY. CALL TO DR RAMON TO MAKE HIM AWARE AND STATES OK TO HOLD DC UNTIL TOMORROW WHEN SECURE TRANSPORT CAN BE DONE. NO FURTHER NEEDS AT THIS TIME.
--- NOTE | 2021-11-14 06:36 | NUR ---
Overall, patient had a restful night. At the start of shift, she was very vocal regarding her situation. Suicide assessment complete, she stated that she does not current;y want to hurt herself, but that she frequently has mood changed where she thinks it would be easier to "not be here". Upon inial assessment, pt was happy and conversationsl. VSS. Complaining of constipation discomfort. Suppository ordered, pt had relief. Tachycardic up to 140's with activity. Around 0000, telesitter called this RN to alert that the patient was pulling at IV and cords. the patient stated that she was trying to get to her things in the closet because she wanted to leave. She voiced her anxiety regarding going to [place] in the morning for inpatient psych care. the patient and I had a long discussion regarding expectations and golas and her current situation. She again became agreeable to go to [facility] when transport became avaliable. After this event, she had a restful night. Waiting for transport to be avaliable; no call regarding timeline recieved overnight.
--- NOTE | 2021-11-14 07:30 | NUR ---
ASSUMED CARE: PT RESTING QUIETLY AT THIS TIME. NSR ON TELE. NO ACUTE NEEDS AT THIS TIME.
--- NOTE | 2021-11-14 08:28 | NUR ---
TRANSPORT SET TO ARRIVE FOR PT AT 9:[address] GRIMALDO TO MAKE HER AWARE THAT DC ORDERS ARE IN AND THAT PT IS SET TO LEAVE AT 9:30. PT CURRENTLY EATING BREAKFAST, DENIES SI AT THIS TIME.
--- NOTE | 2021-11-14 10:54 | NUR ---
SECURE FACILITIES OPERATOR ARRIVED TO TAKE PT TO [facility] AND PT REFUSED. STATED SHE DID NOT WANT TO GO IF SHE COULD'T WEAR HER OWN CLOTHES BECAUSE THE PAPER SCRUBS WE OFFER MAKE HER LOOK LIKE A BOY. SECURITY STANDING BY WHILE TUBE BUILDING MACHINE OPERATOR, PRIMARY RN AND TRANSPORTER IN ROOM. PT MADE COMMENTS THATPAULO DIDN'T NEED TO GO TO [place] AND THAT SHE COULD MANAGE ON HER OWN. NURSE REMINDED HER THAT THIS WAS HER EIGHTH ATTEMPT SINCE AUGUST. PT COMMENTED THAT SHE WISHED THE LAST TIME HAD BEEN SUCCESSFUL. STAFF INFORMED HER THAT THESE KIND OF COMMENTS ARE WHAT INDICATES TO US THAT SHE NEEDS MORE HELP THAN WHAT THIS FACILITY CAN PROVIDE. CALL TO DR GRIMALDO FOR ORAL ANXIETY MEDICATION, ATIVAN, DUE TO PT STATING SHE WAS ANXIOUS ABOUT GOING. PT AGREED TO ATIVAN AND TRANSPORTER AGREED TO LET HER WEAR HER OWN PAJAMAS. PT EVENTUALLY AGREED TO GET INTO WHEEL CHAIR AND WAS ESCORTED OUT BY TUBE BUILDING MACHINE OPERATOR, SECURITY AND SECURE TRANSPORTER.
== END 2021-11-14 10:30 | DRG 918 ==
LOC: ER 21:28 → ICUW 11-11 02:13
PROVIDERS: Family Medicine; Student in an Organized Health Care Education/Training Program; ADMIT Internal Medicine
DX: T39.012A Poisoning by aspirin, intentional self-harm, initial encounter (principal); E87.4 Mixed disorder of acid-base balance; Z20.822 Contact with and (suspected) exposure to COVID-19; G44.40 Drug-induced headache, not elsewhere classified, not intractable; F32.9 Major depressive disorder, single episode, unspecified; F12.90 Cannabis use, unspecified, uncomplicated; F42.9 Obsessive-compulsive disorder, unspecified; F64.9 Gender identity disorder, unspecified; I50.9 Heart failure, unspecified; Z79.899 Other long term (current) drug therapy; Z98.890 Other specified postprocedural states
CPT/HCPCS: 0241U; 36415; 80048; 80053; 81003; 82803; 84132; 84436; 84443; 85025; 93005; 93010; 96365; 96366; 96375; 99285-25; A9270; C9113; G0480; J2405; J3480; J7070

== ENCOUNTER 2021-12-03 12:39 | Emergency (ER) | payer OTHER ==
[~2021-12-03] VITALS: Ht 188 cm; Wt 90.7 kg
[~2021-12-03 12:39] MED LIST changes: +Calcium Carbon500 MG PO; +SENN187 PO; +TRAZ100 PO
[2021-12-03] MEDS ORDERED: OLAN2.5 PO (14:18)
== END 2021-12-03 14:26 | disposition home or self-care (01) ==
LOC: ER 12:39
DX: R06.02 Shortness of breath (principal); Z76.0 Encounter for issue of repeat prescription
CPT/HCPCS: 99281

== ENCOUNTER 2021-12-10 02:30 | Inpatient (IN) | payer OTHER ==
[~2021-12-10] VITALS: Ht 188 cm; Wt 97.2 kg
[~2021-12-10 02:30] MED LIST changes: +OLAN2.5 PO
[2021-12-10 03:24] LABS: BASOPHILS ABSOLUTE AUTO 0.04 K/mm3 (0.00-0.23); BASOPHILS PERCENT AUTO 0 % (0-2); EOSINOPHILS ABSOLUTE AUTO 0.03 K/mm3 (0.00-0.68); EOSINOPHILS PERCENT AUTO 0 % (0-6); Hematocrit 40.5 % (33.0-51.0); Hemoglobin 13.1 g/dL (11.5-16.0); IMMATURE GRAN ABSOLUTE AUTO 0.02 K/mm3 (0.00-0.10); IMMATURE GRAN PERCENT AUTO 0 % (0-1); LYMPHOCYTES ABSOLUTE AUTO 2.28 K/mm3 (0.84-5.20); LYMPHOCYTES PERCENT AUTO 24 % (21-46); MONOCYTES ABSOLUTE AUTO 0.56 K/mm3 (0.16-1.47); MONOCYTES PERCENT AUTO 6 % (4-13); Mean Corpuscular HGB Conc 32.3 g/dL (31.5-36.5); Mean Corpuscular Volume 93 fL (80-100); Mean Platelet Volume 9.9 fL (9.1-12.4); NEUTROPHILS ABSOLUTE AUTO 6.65 K/mm3 (1.96-9.15); NEUTROPHILS PERCENT AUTO 70 % (41-73); Platelet Count 259 K/mm3 (150-400); RDW Standard Deviation 47.8 fL (35.1-46.3); Red Blood Cell Count 4.36 M/mm3 (3.80-5.20); White Blood Cell Count 9.58 K/mm3 (4.00-11.30)
[2021-12-10 03:42] LABS: Alanine Aminotransfer (ALT/SGP 17 U/L (12-78); Albumin, Blood 3.8 g/dL (3.4-5.0); Albumin/Globulin Ratio 1.1 (0.8-1.8); Alk Phos 114 U/L (50-136); Anion Gap 5 mmol/L (6-16); Aspartate Aminotrans (AST/SGOT 9 U/L (12-37); Bilirubin, Total 0.1 mg/dL (0.1-1.0); Blood Urea Nitrogen 13 mg/dL (8-24); Bun/Creatinine Ratio 15.8 (12.0-20.0); CO2, Blood 25 mmol/L (21-32); Calcium, Blood 8.9 mg/dL (8.5-10.1); Chloride, Blood 109 mmol/L (98-108); Creatinine, Blood 0.82 mg/dL (0.40-1.00); Ethanol (Alcohol), Blood, Med <3 mg/dL; Globulin, Blood 3.4 g/dL (2.2-4.0); Glomerular Filtration Rate >60 (60-); Glucose, Blood 104 mg/dL (70-99); Potassium, Blood 3.6 mmol/L (3.5-5.5); Sodium, Blood 139 mmol/L (136-145); Total Protein, Blood 7.2 g/dL (6.4-8.2)
[2021-12-10 03:51] LABS: Acetaminophen, Random <2.0 ug/mL (10.0-30.0)
[2021-12-10 04:04] LABS: Source, Urine Clean Catch
[2021-12-10 04:08] LABS: Bilirubin, Urine Neg (Neg); Blood, Urine Neg (Neg); Glucose Qualitative, Urine Neg (Neg); Ketones, Urine Neg (Neg); Leukocyte Esterase, Urine Neg (Neg); Nitrite, Urine Neg (Neg); Protein, Urine Neg (Neg); Urobilinogen, Urine NORM (Normal)
[2021-12-10 04:15] LABS: Base Excess Venous -0.5 mmol/L; Bicarbonate Venous 24.6 mmol/L (24.0-30.0); PCO2 Venous 32.7 mmHg (38-42); PO2 Venous 140 mmHg (38-42); pH Blood Venous 7.46 (7.34-7.37)
[2021-12-10 04:19] LABS: Appearance, Urine Clear (Clear); Color, Urine Pale Yellow (P-Yellow)
[2021-12-10 04:27] LABS: U Amphetamine Screen Not Detected; U Barbituate Screen Not Detected; U Benzodiazapine Screen Not Detected; U Buprenorphine Screen Not Detected; U Cannabinoids Screen Not Detected; U Cocaine Screen Not Detected; U Methadone Screen Not Detected; U Methamphetamine Screen Not Detected; U Opiates Screen Not Detected; U Oxycodone Screen Not Detected; U Phencyclidine Screen Not Detected; U Propoxyphene Screen Not Detected
[2021-12-10 05:43] LABS: Bicarbonate Venous 28.1 mmol/L (24.0-30.0); PCO2 Venous 35.1 mmHg (38-42); PO2 Venous 166 mmHg (38-42)
[2021-12-10 05:58] LABS: Anion Gap 2 mmol/L (6-16); Blood Urea Nitrogen 14 mg/dL (8-24); Bun/Creatinine Ratio 16.5 (12.0-20.0); CO2, Blood 28 mmol/L (21-32); Calcium, Blood 9.1 mg/dL (8.5-10.1); Chloride, Blood 106 mmol/L (98-108); Creatinine, Blood 0.85 mg/dL (0.40-1.00); Glomerular Filtration Rate >60 (60-); Glucose, Blood 122 mg/dL (70-99); Potassium, Blood 4.2 mmol/L (3.5-5.5); Sodium, Blood 136 mmol/L (136-145)
[2021-12-10 08:10] LABS: Anion Gap 5 mmol/L (6-16); Blood Urea Nitrogen 14 mg/dL (8-24); Bun/Creatinine Ratio 16.6 (12.0-20.0); CO2, Blood 25 mmol/L (21-32); Calcium, Blood 8.6 mg/dL (8.5-10.1); Chloride, Blood 109 mmol/L (98-108); Creatinine, Blood 0.84 mg/dL (0.40-1.00); Glomerular Filtration Rate >60 (60-); Glucose, Blood 100 mg/dL (70-99); Potassium, Blood 4.1 mmol/L (3.5-5.5); Sodium, Blood 139 mmol/L (136-145)
[2021-12-10 09:10] LABS: Base Excess Venous 4.4 mmol/L; Bicarbonate Venous 28.3 mmol/L (24.0-30.0); PCO2 Venous 35.3 mmHg (38-42)
[2021-12-10 09:31] LABS: Anion Gap 4 mmol/L (6-16); Blood Urea Nitrogen 14 mg/dL (8-24); Bun/Creatinine Ratio 16.3 (12.0-20.0); CO2, Blood 27 mmol/L (21-32); Calcium, Blood 8.4 mg/dL (8.5-10.1); Chloride, Blood 108 mmol/L (98-108); Creatinine, Blood 0.86 mg/dL (0.40-1.00); Glomerular Filtration Rate >60 (60-); Glucose, Blood 105 mg/dL (70-99); Sodium, Blood 139 mmol/L (136-145)
[2021-12-10 11:07] LABS: Anion Gap 4 mmol/L (6-16); Blood Urea Nitrogen 14 mg/dL (8-24); Bun/Creatinine Ratio 16.3 (12.0-20.0); CO2, Blood 27 mmol/L (21-32); Chloride, Blood 110 mmol/L (98-108); Creatinine, Blood 0.86 mg/dL (0.40-1.00); Glomerular Filtration Rate >60 (60-); Glucose, Blood 101 mg/dL (70-99); Potassium, Blood 3.9 mmol/L (3.5-5.5); Salicylate 33.9 mg/dL (2.8-20.0); Sodium, Blood 141 mmol/L (136-145)
--- NOTE | 2021-12-10 11:15 | NUR ---
REPORTED TO BOTH DR JONES AND DR KNOX THE SBP 70-80S, MAP CONSTINTENTLY 60 OR GREATER, 2 500ML NS BOLUSES GIVEN, BP NOW 88/58, HEART RATE 78. POISON CONTROL CALLED 0836 AND 1023, REPORTING SALICYLICIDE LEVELS, POTASSIUM, VSS, AND PATIENTS MENTATION. PATIENT HAS STAYED A&OX4. CRISIS IN SEEING PATIENT. [facility]
[2021-12-10 12:55] LABS: Base Excess Venous 6.3 mmol/L; Bicarbonate Venous 29.2 mmol/L (24.0-30.0); PCO2 Venous 41.6 mmHg (38-42); PO2 Venous 42.9 mmHg (38-42); pH Blood Venous 7.47 (7.34-7.37)
[2021-12-10 13:45] LABS: Anion Gap 1 mmol/L (6-16); Blood Urea Nitrogen 14 mg/dL (8-24); Bun/Creatinine Ratio 15.1 (12.0-20.0); CO2, Blood 28 mmol/L (21-32); Calcium, Blood 8.2 mg/dL (8.5-10.1); Chloride, Blood 110 mmol/L (98-108); Creatinine, Blood 0.93 mg/dL (0.40-1.00); Glomerular Filtration Rate >60 (60-); Glucose, Blood 103 mg/dL (70-99); Potassium, Blood 3.6 mmol/L (3.5-5.5); Salicylate 29.9 mg/dL (2.8-20.0); Sodium, Blood 139 mmol/L (136-145)
--- NOTE | 2021-12-10 14:18 | NUR ---
REPORTED POISON CONTROLS RECOMMENDATION TO KEEP K AT 4.0, LAB RESULTS FROM 1230 K IS 3.6, ADVANCING DIET, 40 MEQ KCL NOW PO, PATIENT SLEEPING NO DISTRESS, MOTHER DMITRY CALLED.
--- NOTE | 2021-12-10 14:38 | NUR ---
Discussed case with Mikey @ [facility]. Antony performed Pre-commitment evaluation of this patient on involuntary hold this morning in ICU. He reports pt stated she has stopped smoking pot, as she has a job interview next week, and took the aspirin "to get high". Apparently she had taken before and felt some relief of anxiety. Antony reports patient has appoinments at [facility], and is looking into an emergency appointment for meds that may occur on at [facility]. Pt has therapist Nga Alvarado she is seeing--appointments scheduled 12/14/21 12p, 12/30/21 130, 01/11/22 12n. PCP appointment 12/17/[address] Amaya, Psychiatric Evaluation with [facility] Cheryl Narvaez 01-08-22 11a. Antony reports Borderline Personality Disorder is diagnosis in [facility] record. He is concerned that medication are indicated for her, as she was relying on marijuana, which she discontinued due to concern of a drug test for a job interview coming up. Any Dawson M.Ed., [facility]
--- NOTE | 2021-12-10 14:57 | NUR ---
AROLDO GILMORE IS FINISHING THE SUICIDE SAFETY PLAN AFTER JENNIFER HAS ROUNDED ON PATIENT. NO CHANGES WITH PATIENT
[2021-12-10 15:48] LABS: Anion Gap 1 mmol/L (6-16); Blood Urea Nitrogen 13 mg/dL (8-24); Bun/Creatinine Ratio 14.4 (12.0-20.0); CO2, Blood 29 mmol/L (21-32); Calcium, Blood 7.8 mg/dL (8.5-10.1); Chloride, Blood 108 mmol/L (98-108); Glomerular Filtration Rate >60 (60-); Glucose, Blood 101 mg/dL (70-99); Potassium, Blood 3.1 mmol/L (3.5-5.5); Salicylate 23.4 mg/dL (2.8-20.0); Sodium, Blood 138 mmol/L (136-145)
[2021-12-10 17:03] LABS: Base Excess Venous 8.4 mmol/L; Bicarbonate Venous 31.5 mmol/L (24.0-30.0); PCO2 Venous 40.1 mmHg (38-42)
--- NOTE | 2021-12-10 17:36 | NUR ---
Spiritual Care Visits. Two of them... 1.) At approx 15:30 seeking permission of Pt. to test a new survey the Spiritual Carer Dept. is testing, "Things we care to know..." Pt. agreed. Survey was given in approx. 5 minutes. Results posted on her wall. 2.) At approx 16:40 responded to a Pt. Spiritual Care request. Pt. is awake (and monitored) and welcomed my visit. Pt. is unsettled spiritually about how she is accepted by God and others. Pts. spiritual distress is related to a diminished sense dignity, and family unit complications and expectations. Listened empathetically, and established a therapeutic alliance with the pt. Explored issues of susan and belief. Pt. verbalized that they felt safe, and were sharing things they had never shared with anyone. Pt. displayed evidence of reduced stress and restored susan. Prayed with Pt. Pt. verbalized gratitude for the spiritual care visit and welcomed my return.
--- NOTE | 2021-12-10 18:27 | NUR ---
LAERT AND ORIENTED X4, MAKES NEEDS KNOWN, CALL LIGHT WITH IN REACH, SI PRECAUTIONS, 1:1, DIRECT OBSERVATION. NO HISTORY OF VIOLENCE, MULTIPKE SI ATTEMPTS WITH ASA, MAJOR DEPRESSION. LS DIMINISHED, CLEARS CONGESTION WITH COUGH, SATS RA 98%. HEART RATE 80S, NSR, WHEN EMOTIONAL HEART RATE ST 110. ATE LUNCH AND DINNER 100%, EARLIER COMPLAINED OF NAUSEA, MEDICATED WITH ZOFRAN. STAND BY ASSIST TO BSC TRANSFER, STEADY GAIT. SKIN CDI, NO WOUNDS. INVOLUNTARY HOLD, BEDREST WITH BATHROOM PRIVILEGES. WILL RELAY TO PM RN, SUGAR
[2021-12-11 05:59] LABS: Alanine Aminotransfer (ALT/SGP 15 U/L (12-78); Albumin, Blood 3.1 g/dL (3.4-5.0); Albumin/Globulin Ratio 1.1 (0.8-1.8); Alk Phos 88 U/L (50-136); Anion Gap 3 mmol/L (6-16); Aspartate Aminotrans (AST/SGOT 8 U/L (12-37); Bilirubin, Total 0.2 mg/dL (0.1-1.0); Blood Urea Nitrogen 14 mg/dL (8-24); Bun/Creatinine Ratio 19.4 (12.0-20.0); CO2, Blood 27 mmol/L (21-32); Calcium, Blood 8.6 mg/dL (8.5-10.1); Chloride, Blood 108 mmol/L (98-108); Creatinine, Blood 0.72 mg/dL (0.40-1.00); Globulin, Blood 2.9 g/dL (2.2-4.0); Glomerular Filtration Rate >60 (60-); Glucose, Blood 110 mg/dL (70-99); Magnesium, Blood 2.2 mg/dL (1.6-2.4); Phosphorus, Blood 3.1 mg/dL (2.5-4.9); Potassium, Blood 4.1 mmol/L (3.5-5.5); Salicylate 3.6 mg/dL (2.8-20.0); Sodium, Blood 138 mmol/L (136-145)
--- NOTE | 2021-12-11 06:26 | NUR ---
One to one sitter with patient through shift due to suicide risk. Patient stated that she doesnt want to , but does want to harm herself. She stated that she wanted to be back in this ICU, that she is comfortable here. Through the shift she is very talkative, in good spirits. Medically she is stable. Experiencing slight tennitus, otherwise neuro intact. On room air, NSR, BP stable. OOB to commode with supervision. Good appetite, taking PO fluids. Resting well. Poision control updated on ASA levels and patient status through the night.
--- NOTE | 2021-12-11 07:32 | NUR ---
ASSUME CARE: I have assumed care of this patient.
--- NOTE | 2021-12-11 15:09 | NUR ---
TRANSFER: Pt to be transferred to room 349. Report called to ELENI Naranjo. Pt has been pleasant today. She denies any new thoughts of suicide since arrival to the hospital. Sana transferrs to the toilet independantly. She was assisted with shower today. 1:1 monitor continues at bedside. Dr Velez to see pt this evening.
--- NOTE | 2021-12-11 15:35 | NUR ---
Pt. is resting in bed, but responds when I enter the room. Pt. is pleasant, but a little unsettled about a future psych consult. Listen empatheticially and normalize the pt. experience. Re-establish rapport. Pt. verbalizes more of her past, and verbalizes spiritual distress based on past rejection and personal choices. Pt. verbalizes the loss of relatedness to family members who have different beliefs. Explored sources of relatedness and dignity. Pt. displayed evidence of renewed hope. Pt. verbalized a restored susan in God. Continued building rapport. Prayed for pt. Pt. verbalized gratitude for the prayer and for the spiritual care given. Pt. also verbalized that she felt safe in the hospital.
--- NOTE | 2021-12-11 18:15 | NUR ---
PT ARRIVED TO UNIT @ THIS TIME PT ORIENTATED TO ROOM. PT ARRIVED VIA WC, SELF TRANSFERED TO BED W/ STEADY GAIT. INDEPENDENT IN ROOM. DENIES SI. PT STATES, "ACTUALLY I FEEL THE OPPOSITE, I FEEL LIKE THIS NEW JOB OPPERTUNITY IS GOING TO BE A NEW START." PT RESTING IN BED COMFORTABLY @ THIS TIME, CALL LIGHT W/IN REACH. SNACKS PROVIDED, TOLERATING WELL. PLAN TO START TELE @ THIS TIME.
--- NOTE | 2021-12-12 01:11 | NUR ---
CHOCOLATE TEMPERER SUMMARY PATIENT HAD A FAIR SHIFT. MEDICATION LIST UPDATED PER PT. HAD HER PAIN MEDICATION FOR HEADACHE. NO OTHER COMPLAINTS. WILL CONTINUE TO MONITOR HIM. STATED SHE FEELS BETTER AND IS READY FOR DISCHARGE.
[2021-12-12 13:10] LABS: Source, Urine Clean Catch
[2021-12-12 13:19] LABS: Bilirubin, Urine Neg (Neg); Blood, Urine Neg (Neg); Glucose Qualitative, Urine Neg (Neg); Ketones, Urine Neg (Neg); Leukocyte Esterase, Urine Neg (Neg); Nitrite, Urine Neg (Neg); Protein, Urine Neg (Neg); Urobilinogen, Urine NORM (Normal)
[2021-12-12 13:26] LABS: Appearance, Urine Clear (Clear); Color, Urine Pale Yellow (P-Yellow)
--- NOTE | 2021-12-12 15:00 | NUR ---
DISCHARGED PT A&O X4 @ TIME OF D/C. PT PROVIDED W/ WRITTEN AND VERBAL D/C INSTRUCTION. PT VERBALIZED UNDERSTANDING OF INSTRUCTION. IV REMOVED, CINDY PIERCE'ED. PT MOTHER PROVIDED TRANSPORT. [facility] ESCORTED PT AND BELONG[facility] TO [facility].
[2021-12-14 00:09] LABS: CHLAMYDIA TRACHOMATIS, NAA Negative (Negative)
== END 2021-12-12 15:55 | disposition home or self-care (01) | DRG 918 ==
LOC: ER 02:30 → ICUW 05:56 → MEDS 05:56 → ICUW 07:07 → MEDS 12-11 18:16
PROVIDERS: Family Medicine; Internal Medicine; Student in an Organized Health Care Education/Training Program; ADMIT Internal Medicine
DX: T39.012A Poisoning by aspirin, intentional self-harm, initial encounter (principal); E87.3 Alkalosis; F32.9 Major depressive disorder, single episode, unspecified; Z98.890 Other specified postprocedural states; I11.0 Hypertensive heart disease with heart failure; I50.9 Heart failure, unspecified; Z79.899 Other long term (current) drug therapy; F42.9 Obsessive-compulsive disorder, unspecified
CPT/HCPCS: 36415; 80048; 80053; 81003; 81025; 82803; 83735; 84100; 85025; 87491; 87591; 93005; 93010; 96365; 96368; 96376; 99285-25; A9270; G0480; J2405; J3475; J3480; J7030; J7040; J7050; J7070

== ENCOUNTER → 2022-01-06 | Outpatient (CLI) | payer OTHER | LOC: LAB SHORT 17:54 | DX: R39.89 Other symptoms and signs involving the genitourinary system (principal) | CPT/HCPCS: 87086 ==

== ENCOUNTER → 2022-03-09 | Outpatient (CLI) | payer OTHER ==
[~2022-03-09] MED LIST changes: +DEPAKOTE ER500 M2 PO; -FLUO10 PO; +HYDROXYZINE PAM25 MG PO; +OLANZAPINE5 M1 PO; +Prozac20 MG PO
== END | disposition home or self-care (01) ==
LOC: LAB SHORT 13:06 → LAB 13:06
DX: Z09 Encounter for follow-up examination after completed treatment for conditions other than malignant neoplasm (principal); Z87.890 Personal history of sex reassignment
CPT/HCPCS: 87070; 87205

== ENCOUNTER 2022-03-15 21:16 | Emergency (ER) | payer OTHER ==
[~2022-03-15] VITALS: Ht 188 cm; Wt 100.2 kg
== END 2022-03-15 23:14 | disposition left against medical advice (07) ==
LOC: ER 21:16
DX: R11.2 Nausea with vomiting, unspecified (principal); R19.7 Diarrhea, unspecified; Z53.21 Procedure and treatment not carried out due to patient leaving prior to being seen by health care provider
CPT/HCPCS: 99281

== ENCOUNTER 2022-03-26 20:13 | Observation (INO) | payer OTHER ==
[~2022-03-26] VITALS: Ht 188 cm; Wt 83.9 kg
[2022-03-26 20:42] LABS: Hematocrit 34.1 % (33.0-51.0); Hemoglobin 11.2 g/dL (11.5-16.0); LYMPHOCYTES PERCENT AUTO 35 % (21-46); MONOCYTES PERCENT AUTO 7 % (4-13); Mean Corpuscular HGB Conc 32.8 g/dL (31.5-36.5); Mean Corpuscular Volume 95 fL (80-100); Mean Platelet Volume 10.5 fL (9.1-12.4); NEUTROPHILS PERCENT AUTO 56 % (41-73); Platelet Count 184 K/mm3 (150-400); RDW Coefficient Variation 14.5 % (11.7-14.2); RDW Standard Deviation 49.6 fL (35.1-46.3); Red Blood Cell Count 3.61 M/mm3 (3.80-5.20); White Blood Cell Count 6.32 K/mm3 (4.00-11.30)
[2022-03-26 20:43] LABS: BASOPHILS ABSOLUTE AUTO 0.03 K/mm3 (0.00-0.23); BASOPHILS PERCENT AUTO 1 % (0-2); EOSINOPHILS ABSOLUTE AUTO 0.08 K/mm3 (0.00-0.68); EOSINOPHILS PERCENT AUTO 1 % (0-6); IMMATURE GRAN ABSOLUTE AUTO 0.01 K/mm3 (0.00-0.10); IMMATURE GRAN PERCENT AUTO 0 % (0-1); LYMPHOCYTES ABSOLUTE AUTO 2.22 K/mm3 (0.84-5.20); MONOCYTES ABSOLUTE AUTO 0.44 K/mm3 (0.16-1.47); NEUTROPHILS ABSOLUTE AUTO 3.54 K/mm3 (1.96-9.15)
[2022-03-26 21:12] LABS: Acetaminophen, Random <2.0 ug/mL (10.0-30.0); Alanine Aminotransfer (ALT/SGP 21 U/L (12-78); Albumin, Blood 3.3 g/dL (3.4-5.0); Albumin/Globulin Ratio 1.1 (0.8-1.8); Alk Phos 70 U/L (50-136); Anion Gap 6 mmol/L (6-16); Aspartate Aminotrans (AST/SGOT 12 U/L (12-37); Bilirubin, Total 0.2 mg/dL (0.1-1.0); Blood Urea Nitrogen 7 mg/dL (8-24); Bun/Creatinine Ratio 10.6 (12.0-20.0); CO2, Blood 27 mmol/L (21-32); Calcium, Blood 8.4 mg/dL (8.5-10.1); Chloride, Blood 106 mmol/L (98-108); Creatinine, Blood 0.66 mg/dL (0.40-1.00); Ethanol (Alcohol), Blood, Med 114 mg/dL; Free Thyroxine 0.98 ng/dL (0.70-1.60); Glomerular Filtration Rate 119 (60-); Glucose, Blood 119 mg/dL (70-99); Potassium, Blood 3.9 mmol/L (3.5-5.5); Salicylate <1.7 mg/dL (2.8-20.0); Sodium, Blood 139 mmol/L (136-145); Thyroid Stimulating Hormone 0.614 uIU/mL (0.360-4.800); Total Protein, Blood 6.3 g/dL (6.4-8.2); Valproic Acid 34.8 ug/mL (50.0-100.0)
[2022-03-27 02:43] LABS: Source, Urine Fem Cath
[2022-03-27 03:13] LABS: Appearance, Urine Clear (Clear); Bilirubin, Urine Neg (Neg); Blood, Urine 2+ (Neg); Color, Urine Yellow (P-Yellow); Glucose Qualitative, Urine Neg (Neg); Ketones, Urine Neg (Neg); Leukocyte Esterase, Urine 3+ (Neg); Nitrite, Urine Neg (Neg); Protein, Urine 1+ (Neg); Urobilinogen, Urine NORM (Normal)
[2022-03-27 03:14] LABS: Bacteria Few /hpf; Red Blood Cells, Urine 0-2 /hpf (0-2); Squamous Epithelial Cells Rare /hpf (Few)
[2022-03-27 03:15] LABS: U Amphetamine Screen Not Detected; U Barbituate Screen Not Detected; U Benzodiazapine Screen DETECTED; U Buprenorphine Screen Not Detected; U Cannabinoids Screen Not Detected; U Cocaine Screen Not Detected; U Methadone Screen Not Detected; U Methamphetamine Screen Not Detected; U Opiates Screen Not Detected; U Oxycodone Screen DETECTED; U Phencyclidine Screen Not Detected; U Propoxyphene Screen Not Detected
== END 2022-03-27 09:10 | disposition home or self-care (01) ==
LOC: ER 20:13 → EOR 20:14
PROVIDERS: ADMIT Emergency Medicine
DX: F10.129 Alcohol abuse with intoxication, unspecified (principal); R45.851 Suicidal ideations; I50.9 Heart failure, unspecified; F32.9 Major depressive disorder, single episode, unspecified; F42.9 Obsessive-compulsive disorder, unspecified; Y90.5 Blood alcohol level of 100-119 mg/100 ml; Z91.51 Personal history of suicidal behavior; Z79.899 Other long term (current) drug therapy; Z79.890 Hormone replacement therapy
CPT/HCPCS: 36415; 80053; 80164; 81001; 84439; 84443; 85025; 87086; 99285; A9270; G0378; G0480

== ENCOUNTER 2022-04-15 23:45 | Inpatient (IN) | payer OTHER ==
[~2022-04-15] VITALS: Ht 188 cm; Wt 102.4 kg
[2022-04-16 00:21] LABS: White Blood Cell Count 7.08 K/mm3 (4.00-11.30)
[2022-04-16 00:22] LABS: BASOPHILS ABSOLUTE AUTO 0.04 K/mm3 (0.00-0.23); BASOPHILS PERCENT AUTO 1 % (0-2); EOSINOPHILS ABSOLUTE AUTO 0.11 K/mm3 (0.00-0.68); EOSINOPHILS PERCENT AUTO 2 % (0-6); Hematocrit 35.6 % (33.0-51.0); Hemoglobin 11.5 g/dL (11.5-16.0); IMMATURE GRAN ABSOLUTE AUTO 0.02 K/mm3 (0.00-0.10); IMMATURE GRAN PERCENT AUTO 0 % (0-1); LYMPHOCYTES ABSOLUTE AUTO 2.53 K/mm3 (0.84-5.20); LYMPHOCYTES PERCENT AUTO 36 % (21-46); MONOCYTES ABSOLUTE AUTO 0.58 K/mm3 (0.16-1.47); MONOCYTES PERCENT AUTO 8 % (4-13); Mean Corpuscular HGB 30.4 pg (26.0-34.0); Mean Corpuscular HGB Conc 32.3 g/dL (31.5-36.5); Mean Corpuscular Volume 94 fL (80-100); Mean Platelet Volume 10.7 fL (9.1-12.4); NEUTROPHILS PERCENT AUTO 54 % (41-73); Platelet Count 251 K/mm3 (150-400); RDW Standard Deviation 48.4 fL (35.1-46.3); Red Blood Cell Count 3.78 M/mm3 (3.80-5.20)
[2022-04-16 00:44] LABS: U Amphetamine Screen Not Detected; U Barbituate Screen Not Detected; U Benzodiazapine Screen Not Detected; U Buprenorphine Screen Not Detected; U Cannabinoids Screen Not Detected; U Cocaine Screen Not Detected; U Methadone Screen Not Detected; U Methamphetamine Screen Not Detected; U Opiates Screen Not Detected; U Oxycodone Screen Not Detected; U Phencyclidine Screen Not Detected; U Propoxyphene Screen Not Detected
[2022-04-16 00:52] LABS: Ethanol (Alcohol), Blood, Med <3 mg/dL; Free Thyroxine 0.97 ng/dL (0.70-1.60); Salicylate 17.4 mg/dL (2.8-20.0)
[2022-04-16 00:56] LABS: Alanine Aminotransfer (ALT/SGP 16 U/L (12-78); Albumin, Blood 3.6 g/dL (3.4-5.0); Albumin/Globulin Ratio 1.2 (0.8-1.8); Alk Phos 67 U/L (50-136); Anion Gap 8 mmol/L (6-16); Aspartate Aminotrans (AST/SGOT 14 U/L (12-37); Bilirubin, Total 0.2 mg/dL (0.1-1.0); Blood Urea Nitrogen 12 mg/dL (8-24); Bun/Creatinine Ratio 14.5 (12.0-20.0); CO2, Blood 25 mmol/L (21-32); Calcium, Blood 8.4 mg/dL (8.5-10.1); Chloride, Blood 107 mmol/L (98-108); Creatinine, Blood 0.83 mg/dL (0.40-1.00); Globulin, Blood 3.1 g/dL (2.2-4.0); Glomerular Filtration Rate 95 (60-); Glucose, Blood 89 mg/dL (70-99); Potassium, Blood 3.6 mmol/L (3.5-5.5); Sodium, Blood 140 mmol/L (136-145); Total Protein, Blood 6.7 g/dL (6.4-8.2)
[2022-04-16 00:57] LABS: Acetaminophen, Random <2.0 ug/mL (10.0-30.0)
--- NOTE | 2022-04-16 04:55 | NUR ---
PT ARRIVES VIA GURNEY FROM ED. ASSUMED CARE OF PT. REPORT RECEIVED FROM ELENI MUSTAFA. PT IS AO, REPORTS DIZZINESS WHEN UP. ALSO REPORTS RINGING IN THE EARS AND HEARTBURN, BUT DENIES PAIN OR OTHER CONCERNS. IV IN PLACE IN L AC WITH BICARB GTT AT 150ML/HR. PT HAS SURGICAL SCARS FROM MULTIPLE SURGERIES AFTER FALLING 3 STORIES IN AUGUST OF LAST YEAR. SHE DENIES SI AT THIS TIME, BUT STATES SHE TOOK THE ASA BECAUSE IT'S EXCITING. PT HAS SIGNIFICANT HX OF SA OD ATTEMPTS WITH ASA. WILL INITIATE ADMIT ORDERS.
[2022-04-16 06:12] LABS: Salicylate 26.6 mg/dL (2.8-20.0)
--- NOTE | 2022-04-16 06:33 | NUR ---
POISON CONTROL CALLS FOR UPDATE. RECOMMENDS BICARB GTT BE INCREASED TO 200ML/HR, CHECK K AND ASA LEVEL Q1-2 HOURS WHILE PT IS SYMPTOMATIC. KEEP K >4. MAY TURN OFF BICARB GTT WHEN SALICYLATE LEVEL IS 20% OF PEAK AND PT IS ASYMPTOMATIC. POISON CONTROL WILL CHECK BACK AT 1000.
[2022-04-16 06:35] LABS: Potassium, Blood 3.5 mmol/L (3.5-5.5)
--- NOTE | 2022-04-16 06:36 | NUR ---
DR JAMES IS CALLED FOR ORDERS PER POISON CONTROL.
[2022-04-16 08:15] LABS: Potassium, Blood 3.4 mmol/L (3.5-5.5); Salicylate 21.9 mg/dL (2.8-20.0)
--- NOTE | 2022-04-16 12:44 | NUR ---
Safety Plan complete. Patient denies current suicidal thought, denies wanting to harm self in hospital. Pt reports took aspirin to get high instead of normal use of pot. 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 Excited to have job and be working again. Future goal also to get own apartment again, as currently lives with mother and father puneet Franks.Described she took enough aspirin "not to kill self", but "enough to get her to a medical floor"--as she described she wanted to avoid having to be in ED for extended time, as she has been therre before for 4 days. Took 30 apirins, and took 20 aspirin the day before. Told mother she took aspirin and came to hospital by ambulance, Reports no attempts prior to Jul 2021, but boyfriend in Jul. She OD'd on aspirin soon after, and discovered it made her high. Aug 2021 drank wine and took aspirin, does not remember but jumped off her 3 [address] [employer] Mnay surgeries at [facility] for broken jaw, pelvis and arm. "did not need aspirin as I was on Oxycodone for pain". Has substance abuse counselor, Ra Londono , land conservation specialist, and meds with Tunde Gray at [facility]. Sees counselor weekly. Pt began trasitio to female in Oct 2018 with estrogen. Recent surgery in February for "bottom" transition. Compliant with meds-Prozac, Trazadone. Reports taking spirin day before hospitalization, but did not tell anyone because she did ot want to miss her dental appointment. Kacie loera informed to make appointment with [facility] staff for f/u. Informed [facility] pack mule worker of hospitalization-pt is well know to [facility]. Pt laughed and presentation not depressed. Any Dawson, Director Behavioral Health
--- NOTE | 2022-04-16 17:35 | NUR ---
SHIFT SUMMARY; ASSUMED CARE AT 0700. A/A/OX4. LAUGHS, SMILES AND JOKES WHEN INTERACTING. DENIES SI, STATES LIKES THE ATTENTION THAT IS DRAWN TO HER WHEN OVERDOSES. STATES WAS NOT TRYING TO HURT HERSELF, IT'S A "LUONG" TO HAVE PARAMETICS CALLED ECT. BICARB DC'D TODAY PER RECOMMENDATION FROM POISION CONTROL AND BY TELEPHONE ORDER FROM DR. FRANCIS. SITTER WITH PT AND CAMERA MONITORING ON UNTIL DC'D BY DR. RODRIGUEZ IN LATE AFTERNOON. COOPERATIVE WITH CARE. WILL CONTINUE TO MONITOR AND TREAT UNTIL CHANGE OF SHIFT.
--- NOTE | 2022-04-16 20:47 | NUR ---
CALLED DR Ceasar JAMES REGARDING RESTART OF DAILY MEDS FOR PT. WILL FURTHER LOOK INTO MED REC AND WILL PUT IN ORDERS.
--- NOTE | 2022-04-17 00:07 | NUR ---
POISON CONTROLLED CALLED FOR A 2300 SALICYLATES LAB RESULT. NO LABS WERE DRAWN. CALLED DR Ceasar JAMES FOR LAB ORDER. SHE WILL PUT IN THAT LAB. POISON COTROL WILL CALL WITHIN 2 HOURS FOR LAB FOLLOW UP. FOLLOW UP REGARDING RESUMPTION OF MEDS. MEDS WERE PUT IN BY RESIDENT ENTERED TO EMAR AND WILL BE FOLLOWED UP BY DAY TEAM.
--- NOTE | 2022-04-17 01:30 | NUR ---
CALLED RESIDENT CT REGARDING PT HAVING FLANK PAIN THAT WAS RADIATING BOTH SIDES TO ABDOMEN. UA ORDERED.
[2022-04-17 02:04] LABS: Source, Urine Clean Catch
[2022-04-17 02:07] LABS: Bilirubin, Urine Neg (Neg); Blood, Urine Neg (Neg); Glucose Qualitative, Urine Neg (Neg); Ketones, Urine Neg (Neg); Leukocyte Esterase, Urine 2+ (Neg); Nitrite, Urine Neg (Neg); Protein, Urine Neg (Neg); Specific Gravity, Urine 1.005 (1.003-1.022); Urobilinogen, Urine NORM (Normal)
[2022-04-17 02:18] LABS: Appearance, Urine Clear (Clear); Color, Urine Pale Yellow (P-Yellow)
[2022-04-17 02:19] LABS: Bacteria Rare /hpf; Red Blood Cells, Urine Not Seen /hpf (0-2); Squamous Epithelial Cells Rare /hpf (Few)
--- NOTE | 2022-04-17 02:20 | NUR ---
POISON CONTROL CALLED FOR UPDATE ON SALICYLATE LAB RESULTS. RESULTS GIVEN TO POISON CONTROL BY THIS RN. CALLER STATED PT TOX CLEARED AFTER THESE RESULTS.
--- NOTE | 2022-04-17 05:00 | NUR ---
SHIFT SUMMARY PT IS ALERT AND ORIENTED. VITALS ARE STABLE AND PT IS ON ROOM AIR WITH SATS ABOVE 92%. PT DENIES CHEST PAIN/PRESSURE OR SOB. PT HAS REPORTED FLANK PAIN THAT RADIATED BILAT LOWER ABDOMEN. UA WAS ORDERED LAST NIGHT AND COLLECTED. PT IS OPEN ABOUT THERAPY AND WANTING MOTHER TO UNDERSTAND WHAT IS GOING ON IN HER LIFE AND WHY SHE TAKES THE MEDICATION. SHE ALSO STS THAT TAKING PILLS TAKES HER OUT OF "REALITY" AND IS NOT MEANT FOR HARM. PT IS ABLE TO AMBULATE UP TO THE BATHROOM WITH SBA. CALL LIGHT IS WITHIN REACH.
== END 2022-04-17 11:54 | disposition home or self-care (01) | DRG 918 ==
LOC: ER 23:45 → PCU 04-16 02:51 → ER 04-16 04:45 → PCU 04-16 05:00
PROVIDERS: Family Medicine; Student in an Organized Health Care Education/Training Program; ADMIT Internal Medicine
DX: T39.012A Poisoning by aspirin, intentional self-harm, initial encounter (principal); I44.0 Atrioventricular block, first degree; H93.13 Tinnitus, bilateral; F32.9 Major depressive disorder, single episode, unspecified; I50.9 Heart failure, unspecified; Z98.890 Other specified postprocedural states; Z79.899 Other long term (current) drug therapy; X58.XXXA Exposure to other specified factors, initial encounter
CPT/HCPCS: 36415; 80053; 81001; 81025; 84132; 84439; 84443; 85025; 87086; 93005; 93010; 96365; 96366; 99285-25; A9270; G0480; J7070

== ENCOUNTER → 2022-06-22 | Outpatient (CLI) | payer OTHER ==
[2022-06-24 10:41] LABS: Candida species (DNA Probe) Negative (NEGATIVE); G. vaginalis (DNA Probe) Positive (NEGATIVE); T. vaginalis (DNA Probe) Negative (NEGATIVE)
== END | disposition home or self-care (01) ==
LOC: LAB 16:00 → LAB SHORT 16:00
PROVIDERS: Student in an Organized Health Care Education/Training Program
DX: R68.89 Other general symptoms and signs (principal)
CPT/HCPCS: 87480; 87510; 87660

== ENCOUNTER 2022-07-12 00:56 | Emergency (ER) | payer OTHER ==
[~2022-07-12] VITALS: Ht 188 cm; Wt 99.8 kg
== END 2022-07-12 06:23 | disposition home or self-care (01) ==
LOC: ER 00:56
DX: K02.9 Dental caries, unspecified (principal); I50.9 Heart failure, unspecified; Z79.899 Other long term (current) drug therapy
CPT/HCPCS: 64400; 99283-25

== ENCOUNTER 2022-08-25 22:19 | Emergency (ER) | payer OTHER ==
[~2022-08-25] VITALS: Ht 188 cm; Wt 99.8 kg
[2022-08-25 23:10] LABS: BASOPHILS ABSOLUTE AUTO 0.05 K/mm3 (0.00-0.23); BASOPHILS PERCENT AUTO 0 % (0-2); EOSINOPHILS ABSOLUTE AUTO 0.05 K/mm3 (0.00-0.68); EOSINOPHILS PERCENT AUTO 0 % (0-6); Hematocrit 38.4 % (33.0-51.0); Hemoglobin 12.8 g/dL (11.5-16.0); IMMATURE GRAN ABSOLUTE AUTO 0.03 K/mm3 (0.00-0.10); IMMATURE GRAN PERCENT AUTO 0 % (0-1); LYMPHOCYTES ABSOLUTE AUTO 1.31 K/mm3 (0.84-5.20); LYMPHOCYTES PERCENT AUTO 11 % (21-46); MONOCYTES ABSOLUTE AUTO 0.69 K/mm3 (0.16-1.47); MONOCYTES PERCENT AUTO 6 % (4-13); Mean Corpuscular HGB 30.6 pg (26.0-34.0); Mean Corpuscular HGB Conc 33.3 g/dL (31.5-36.5); Mean Corpuscular Volume 92 fL (80-100); NEUTROPHILS ABSOLUTE AUTO 9.71 K/mm3 (1.96-9.15); NEUTROPHILS PERCENT AUTO 82 % (41-73); Platelet Count 222 K/mm3 (150-400); RDW Coefficient Variation 15.2 % (11.7-14.2); RDW Standard Deviation 51.6 fL (35.1-46.3); Red Blood Cell Count 4.18 M/mm3 (3.80-5.20); White Blood Cell Count 11.84 K/mm3 (4.00-11.30)
[2022-08-25 23:38] LABS: Albumin, Blood 3.6 g/dL (3.4-5.0); Bilirubin, Total 0.5 mg/dL (0.1-1.0); Bun/Creatinine Ratio 12.1 (12.0-20.0); Calcium, Blood 9.1 mg/dL (8.5-10.1); Creatinine, Blood 0.83 mg/dL (0.40-1.00); Globulin, Blood 3.6 g/dL (2.2-4.0); Potassium, Blood 3.5 mmol/L (3.5-5.5); Total Protein, Blood 7.2 g/dL (6.4-8.2)
[2022-08-26 02:33] LABS: Source, Urine Clean Catch
[2022-08-26 02:40] LABS: Appearance, Urine Clear (Clear); Bilirubin, Urine Neg (Neg); Blood, Urine 2+ (Neg); Color, Urine Yellow (P-Yellow); Glucose Qualitative, Urine Neg (Neg); Ketones, Urine Neg (Neg); Leukocyte Esterase, Urine 2+ (Neg); Nitrite, Urine Neg (Neg); Protein, Urine 1+ (Neg); Urobilinogen, Urine NORM (Normal); pH, Urine 6.5 (5.0-8.0)
[2022-08-26 03:05] LABS: Bacteria Mod /hpf; Squamous Epithelial Cells Few /hpf (Few)
[2022-08-26] MEDS ORDERED: TAMS.4ER PO (03:21)
[2022-08-26] MEDS ORDERED: CEPH500 PO (03:21)
== END 2022-08-26 03:55 | disposition home or self-care (01) ==
LOC: ER 22:19
PROVIDERS: Emergency Medicine; Physician Assistant
DX: N39.0 Urinary tract infection, site not specified (principal); N35.92 Unspecified urethral stricture, female; I95.9 Hypotension, unspecified; I50.9 Heart failure, unspecified; Z79.899 Other long term (current) drug therapy
CPT/HCPCS: 74177; 80053; 81001; 83690; 85025; 87077; 87086; 87186; A9270; J1885; Q9967

== ENCOUNTER 2022-09-12 02:19 | Emergency (ER) | payer OTHER ==
[~2022-09-12] VITALS: Ht 190.5 cm; Wt 81.7 kg
[~2022-09-12 02:19] MED LIST changes: +CEPH500 PO; +TAMS.4ER PO
== END 2022-09-12 11:26 | disposition home or self-care (01) ==
LOC: ER 02:19
DX: F10.90 Alcohol use, unspecified, uncomplicated (principal); F12.90 Cannabis use, unspecified, uncomplicated; F11.90 Opioid use, unspecified, uncomplicated; I11.0 Hypertensive heart disease with heart failure; I50.9 Heart failure, unspecified; Z79.899 Other long term (current) drug therapy
CPT/HCPCS: 93005; 93010; A9270

== ENCOUNTER → 2022-09-30 | Outpatient (CLI) | payer OTHER ==
[2022-10-02 23:09] LABS: CHLAMYDIA TRACHOMATIS, NAA Negative (Negative)
== END | disposition home or self-care (01) ==
LOC: LAB SHORT 12:00
PROVIDERS: Student in an Organized Health Care Education/Training Program
DX: Z11.3 Encounter for screening for infections with a predominantly sexual mode of transmission (principal)
CPT/HCPCS: 87491; 87591

== ENCOUNTER 2022-11-03 01:10 | Inpatient (IN) | payer OTHER ==
[~2022-11-03] VITALS: Ht 188 cm; Wt 105.5 kg
[2022-11-03 05:52] LABS: Acetaminophen, Random 190.2 ug/mL (10.0-30.0); Alanine Aminotransfer (ALT/SGP 26 U/L (12-78); Albumin, Blood 3.5 g/dL (3.4-5.0); Alk Phos 53 U/L (50-136); Anion Gap 9 mmol/L (6-16); Aspartate Aminotrans (AST/SGOT 17 U/L (12-37); Bilirubin, Total 0.7 mg/dL (0.1-1.0); Blood Urea Nitrogen 9 mg/dL (8-24); CO2, Blood 24 mmol/L (21-32); Calcium, Blood 8.5 mg/dL (8.5-10.1); Chloride, Blood 105 mmol/L (98-108); Creatinine, Blood 0.75 mg/dL (0.40-1.00); Ethanol (Alcohol), Blood, Med 102 mg/dL; Globulin, Blood 3.4 g/dL (2.2-4.0); Glomerular Filtration Rate 107 (60-); Glucose, Blood 114 mg/dL (70-99); Potassium, Blood 3.1 mmol/L (3.5-5.5); Salicylate <1.7 mg/dL (2.8-20.0); Sodium, Blood 138 mmol/L (136-145); Total Protein, Blood 6.9 g/dL (6.4-8.2)
[2022-11-03 05:55] LABS: Influenza A, PCR Negative (NEGATIVE); Influenza B, PCR Negative (NEGATIVE); SARS-Cov-2 (COVID-19) PCR, MMC Negative (NEGATIVE)
[2022-11-03 05:56] LABS: Resp Syncytial Virus, PCR Negative (NEGATIVE)
[2022-11-03 06:02] LABS: Appearance, Urine Clear (Clear); Bilirubin, Urine Neg (Neg); Blood, Urine 5+ (Neg); Color, Urine Pale Yellow (P-Yellow); Glucose Qualitative, Urine Neg (Neg); Ketones, Urine Neg (Neg); Leukocyte Esterase, Urine Neg (Neg); Nitrite, Urine Neg (Neg); Protein, Urine Neg (Neg); Urobilinogen, Urine NORM (Normal)
[2022-11-03 06:04] LABS: Amorphous Light (0-Heavy); Bacteria Rare /hpf; Squamous Epithelial Cells Few /hpf (Few); White Blood Cells, Urine 0-2 /hpf (0-5)
[2022-11-03 06:15] LABS: U Amphetamine Screen Not Detected; U Barbituate Screen Not Detected; U Benzodiazapine Screen Not Detected; U Buprenorphine Screen Not Detected; U Cannabinoids Screen DETECTED; U Cocaine Screen Not Detected; U Methadone Screen Not Detected; U Methamphetamine Screen Not Detected; U Opiates Screen Not Detected; U Oxycodone Screen Not Detected; U Phencyclidine Screen Not Detected; U Propoxyphene Screen Not Detected
[2022-11-03 06:25] LABS: BASOPHILS ABSOLUTE AUTO 0.04 K/mm3 (0.00-0.23); BASOPHILS PERCENT AUTO 0 % (0-2); EOSINOPHILS ABSOLUTE AUTO 0.13 K/mm3 (0.00-0.68); EOSINOPHILS PERCENT AUTO 1 % (0-6); Hematocrit 36.6 % (33.0-51.0); Hemoglobin 12.4 g/dL (11.5-16.0); IMMATURE GRAN ABSOLUTE AUTO 0.01 K/mm3 (0.00-0.10); IMMATURE GRAN PERCENT AUTO 0 % (0-1); LYMPHOCYTES ABSOLUTE AUTO 3.74 K/mm3 (0.84-5.20); LYMPHOCYTES PERCENT AUTO 39 % (21-46); MONOCYTES ABSOLUTE AUTO 0.91 K/mm3 (0.16-1.47); MONOCYTES PERCENT AUTO 10 % (4-13); Mean Corpuscular HGB 30.5 pg (26.0-34.0); Mean Corpuscular HGB Conc 33.9 g/dL (31.5-36.5); Mean Corpuscular Volume 90 fL (80-100); Mean Platelet Volume 10.6 fL (9.1-12.4); NEUTROPHILS ABSOLUTE AUTO 4.77 K/mm3 (1.96-9.15); NEUTROPHILS PERCENT AUTO 50 % (41-73); Platelet Count 246 K/mm3 (150-400); RDW Coefficient Variation 13.8 % (11.7-14.2); RDW Standard Deviation 45.7 fL (35.1-46.3); Red Blood Cell Count 4.06 M/mm3 (3.80-5.20)
--- NOTE | 2022-11-03 07:47 | NUR ---
SUICIDE SAFETY AND MITIGATION ROOM MITIGATION DOCUMENTED ON PAPER DUE TO OVERNIGHT DOWN TIME. INTERVENTION UPDATED TO SHOW CURRENT DATA.
--- NOTE | 2022-11-03 08:46 | NUR ---
ADMIT/AM ICU ASSESSMENT NOTE PATIENT IS ALERT AND ORIENTED X 4. SHE SHE LIKES TO BE REFERRED TO IS IN BED BUT AWAKE. SHE HAS ONE PIV TO RIGHT AC WITH ACETALCYSTINE GOING INTO IT. SHE IS ON THE 2ND OF THREE BAGS OF IT. SHE MAEW. NO COMPLAINTS OF BODY PAIN. LUNGS ARE CLEAR T/O ON ROOM AIR. SHEDWAYNE HAS A SOFT ABD +BT X 4 QUAD. SHE STATED SHE DOES NOT HAVE A PLAN TO HARM HERSELF NOR DOES SHE WANT TO AT THIS TIME. SHE STATED THAT SHE DOES FEEL LIKE HARMING SELF WHEN SHE DRINKS AND DOES MARIJUANA HOWEVER WHICH SHE DID LAST NIGHT. SHE HAS VOMITED ONCE SO FAR THIS AM WITH AN ANTIEMETIC GIVEN TO HER THIS MORNING TOO. SHE WAS ABLE TO GET OUT OF BED TO BEDSIDE COMMODED ON HER OWN AND VOID 800ML OF CLEAR YELLOW URINE. SHE RECEIVED A NEW IV TO HER LEFT FA 20G FOR POTASSIUM TO BE DELIVERED VIA IV. VS HAVE BEEN STABLE THIS AM AND SHE IS AFEBRILE. HER RHYTHM HOWEVER IS A 1 DEGREE BLOCK.. SEE RHYTHM STRIP IN CHART. AWAITING DR RODRIGUEZ TO ASSESS PT.
--- NOTE | 2022-11-03 08:53 | NUR ---
call to pts employer per patient she wanted her employer [employer] on [address] [facility] to be called [phone] to state she would not be at work today. I reached Frederick at her work and informed him she was here and nothing else.
[2022-11-03 10:14] LABS: BASOPHILS ABSOLUTE AUTO 0.02 K/mm3 (0.00-0.23); BASOPHILS PERCENT AUTO 0 % (0-2); EOSINOPHILS ABSOLUTE AUTO 0.01 K/mm3 (0.00-0.68); EOSINOPHILS PERCENT AUTO 0 % (0-6); Hemoglobin 12.3 g/dL (11.5-16.0); IMMATURE GRAN ABSOLUTE AUTO 0.01 K/mm3 (0.00-0.10); IMMATURE GRAN PERCENT AUTO 0 % (0-1); LYMPHOCYTES ABSOLUTE AUTO 1.41 K/mm3 (0.84-5.20); LYMPHOCYTES PERCENT AUTO 27 % (21-46); MONOCYTES ABSOLUTE AUTO 0.39 K/mm3 (0.16-1.47); MONOCYTES PERCENT AUTO 7 % (4-13); Mean Corpuscular HGB 30.5 pg (26.0-34.0); Mean Corpuscular HGB Conc 34.2 g/dL (31.5-36.5); Mean Corpuscular Volume 89 fL (80-100); Mean Platelet Volume 10.4 fL (9.1-12.4); NEUTROPHILS PERCENT AUTO 65 % (41-73); Platelet Count 217 K/mm3 (150-400); RDW Coefficient Variation 13.8 % (11.7-14.2); RDW Standard Deviation 45.3 fL (35.1-46.3); Red Blood Cell Count 4.03 M/mm3 (3.80-5.20); White Blood Cell Count 5.24 K/mm3 (4.00-11.30)
[2022-11-03 10:31] LABS: Albumin/Globulin Ratio 0.9 (0.8-1.8); Bilirubin, Total 0.7 mg/dL (0.1-1.0); Bun/Creatinine Ratio 15.2 (12.0-20.0); Calcium, Blood 7.8 mg/dL (8.5-10.1); Creatinine, Blood 0.59 mg/dL (0.40-1.00); Globulin, Blood 3.3 g/dL (2.2-4.0); Potassium, Blood 4.3 mmol/L (3.5-5.5); Total Protein, Blood 6.3 g/dL (6.4-8.2)
[2022-11-03 13:28] LABS: Acetaminophen, Random 17.1 ug/mL (10.0-30.0); Albumin, Blood 3.3 g/dL (3.4-5.0); Albumin/Globulin Ratio 1.1 (0.8-1.8); Bilirubin, Total 0.9 mg/dL (0.1-1.0); Bun/Creatinine Ratio 14.1 (12.0-20.0); Calcium, Blood 8.3 mg/dL (8.5-10.1); Creatinine, Blood 0.71 mg/dL (0.40-1.00); Globulin, Blood 3.1 g/dL (2.2-4.0); Potassium, Blood 3.8 mmol/L (3.5-5.5); Total Protein, Blood 6.4 g/dL (6.4-8.2)
--- NOTE | 2022-11-03 16:39 | NUR ---
PATIENT BEING SEEN BY DR RODRIGUEZ AT 1600. PATIENT AWAKE INDEPENDLY MOVING SELF IN BED, UP TO BATHROOM A FEW TIMES WITH CORD ASSIST BY NURSE. SITTER BY BEDSIDE. PT EATTING AND DRINKING FOOD AND LIQUIDS WITHOUT NAUSEA OR VOMITING NOW.
--- NOTE | 2022-11-03 18:26 | NUR ---
END OF SHIFT NOTE PATIENTS SUICIDE RISK LIFTED AND 2 MD HOLD LIFTED. NO SITTER AT BEDSIDE NOW. PATIENT IS MOVING SELF TO TOILET AND BACK ON HER OWN WITH OUT ASSISTANCE. EATTING HER MEALS AND SNACKS WITHOUT NAUSEA. SHE GOT TO CALL HER MOTHER AND HAVE A GOOD CONVERSATION. ENCOURAGED PATIENT TO TELL THE TRUTH OF THE SITUATION AND WORK THROUGH IT INSTEAD OF HIDING THE TRUTH AND LYING LIKE SHE INITIALLY WANTED TO AND TRIED TO GET ME TO DO FOR HER. SHE IS HAPPY WITH HER CARE TODAY. SHE STILL HAS THE THIRD BACK OF ACETYLCYSTEINE STILL GOING AT RATE 63ML/HR. PATIENT WILL STAY THE NIGHT HERE IN THE HOSPITAL PER DR VILLANUEVA. SHE IS NOW MEDICAL TELE STATUS. WILL GIVE REPORT TO NEXT SHIFT.
--- NOTE | 2022-11-03 20:15 | NUR ---
ASSUMED CARE. PT AOX3. INDEPENDENT. DENIES PAIN OR DISCOMFORT. VS WNL. 1ST DEGREE BLOCK ON MONITOR. GOT UP TO TOILET INDEPENDENTLY, NO COMPLAINTS. DENIES ANY SUICIDAL INTENTIONS AT THIS TIME. CUT ON LEFT ARM SCABBED AND OPEN TO AIR. MEDS ADMINISTERED. SNACKS GIVEN. IV INFUSING ACETYLCYSTEINE AT 62.5 ML/HR LAST BAG.
--- NOTE | 2022-11-03 21:18 | NUR ---
PT RESTING COMFORTLY IN ROOM. SHE HAS HAD FEW EPISODES OF BRADYCARDIA DOWN IN THE 40'S LASTED FEW SECONDS THEN CAME BACK UP TO 60'S.
--- NOTE | 2022-11-03 21:46 | NUR ---
REPORT GIVEN TO FAYE FOR MEDICAL FLOOR ROOM 303.
--- NOTE | 2022-11-03 21:54 | NUR ---
PATIENT TRANSFERRED TO MEDICAL FLOOR 303.
--- NOTE | 2022-11-03 22:13 | NUR ---
RECIEVED PATIENT FROM ICU, ALERT AND ORIENTED X4, MAKING NO C/O PAIN, OR SI/HI. NO CHANGES FROM SHIFT ASSESSMENT NOTED. PATIENT PROVIDED WITH A SNACK AND WATER, AND AGREABLE TO CALL TO MAKE HER NEEDS KNOWN. SHE STATES SHE FEELS BETTER AND JUST WANTS TO GET SOME REST NOW. LIGHTS ARE DIM, CALL LIGHT WITHIN REACH, WILL CONT TO MONITOR.
[2022-11-04 10:16] LABS: Albumin, Blood 3.2 g/dL (3.4-5.0); Albumin/Globulin Ratio 0.9 (0.8-1.8); Bilirubin, Total 0.2 mg/dL (0.1-1.0); Bun/Creatinine Ratio 11.1 (12.0-20.0); Calcium, Blood 8.8 mg/dL (8.5-10.1); Creatinine, Blood 0.72 mg/dL (0.40-1.00); Globulin, Blood 3.5 g/dL (2.2-4.0); Potassium, Blood 3.7 mmol/L (3.5-5.5); Total Protein, Blood 6.7 g/dL (6.4-8.2)
[2022-11-04] MEDS ORDERED: Naltrexone HCl50 MG PO (13:35)
--- NOTE | 2022-11-04 14:30 | NUR ---
DISCHARGE INSTRUCTIONS COMPLETED AND DISCUSSED WITH PT EXPRESSING UNDERSTANDING. [email or web address] [place] [facility] PT REQUEST. TO [place] VIA W/C WITH MOTHER TAKING HER HOME.
== END 2022-11-04 15:05 | disposition home or self-care (01) | DRG 918 ==
LOC: ER 01:10 → ICUW 05:07 → MEDS 22:00
PROVIDERS: Family Medicine; Hospitalist; Student in an Organized Health Care Education/Training Program; ADMIT Internal Medicine
DX: T39.1X2A Poisoning by 4-Aminophenol derivatives, intentional self-harm, initial encounter (principal); F32.9 Major depressive disorder, single episode, unspecified; F10.229 Alcohol dependence with intoxication, unspecified; I95.9 Hypotension, unspecified; I50.9 Heart failure, unspecified; F42.9 Obsessive-compulsive disorder, unspecified; F12.10 Cannabis abuse, uncomplicated; S51.812A Laceration without foreign body of left forearm, initial encounter; E87.6 Hypokalemia; Z20.822 Contact with and (suspected) exposure to COVID-19; X58.XXXA Exposure to other specified factors, initial encounter; Z87.890 Personal history of sex reassignment; Z98.890 Other specified postprocedural states; Z79.899 Other long term (current) drug therapy; Z79.2 Long term (current) use of antibiotics
CPT/HCPCS: 0241U; 36415; 80053; 81001; 83690; 84443; 85025; 93005; 93010; 96360; 99285-25; A9270; G0480; J0132; J1650; J2405; J3480; J7050; J7060; J7070

== ENCOUNTER → 2022-11-18 | Outpatient (CLI) | payer OTHER ==
[~2022-11-18] MED LIST changes: +Naltrexone HCl50 MG PO
[2022-11-19 10:19] LABS: Candida species (DNA Probe) Negative (NEGATIVE); G. vaginalis (DNA Probe) Positive (NEGATIVE); T. vaginalis (DNA Probe) Negative (NEGATIVE)
[2022-11-22 21:09] LABS: CHLAMYDIA TRACHOMATIS, NAA Negative (Negative); NEISSERIA GONORRHOEAE, NAA Negative (Negative)
== END | disposition home or self-care (01) ==
LOC: LAB SHORT 13:56
PROVIDERS: Family Medicine
DX: Z87.890 Personal history of sex reassignment (principal)
CPT/HCPCS: 87480; 87510; 87660

== ENCOUNTER 2022-12-07 00:01 | Emergency (ER) | payer OTHER ==
[~2022-12-07] VITALS: Ht 188 cm; Wt 106.6 kg
[2022-12-07 02:00] LABS: Source, Urine Clean Catch
[2022-12-07 02:10] LABS: Bilirubin, Urine Neg (Neg); Blood, Urine Neg (Neg); Glucose Qualitative, Urine Neg (Neg); Ketones, Urine Neg (Neg); Leukocyte Esterase, Urine Neg (Neg); Nitrite, Urine Neg (Neg); Protein, Urine Neg (Neg); Urobilinogen, Urine NORM (Normal)
[2022-12-07 02:15] LABS: Appearance, Urine Clear (Clear); Color, Urine Yellow (P-Yellow)
[2022-12-07 02:16] LABS: Albumin, Blood 3.8 g/dL (3.4-5.0); Bilirubin, Total 0.4 mg/dL (0.1-1.0); Bun/Creatinine Ratio 13.1 (12.0-20.0); Calcium, Blood 9.4 mg/dL (8.5-10.1); Creatinine, Blood 0.76 mg/dL (0.40-1.00); Potassium, Blood 3.7 mmol/L (3.5-5.5); Total Protein, Blood 7.8 g/dL (6.4-8.2)
[2022-12-07 02:22] LABS: BASOPHILS ABSOLUTE AUTO 0.03 K/mm3 (0.00-0.23); BASOPHILS PERCENT AUTO 0 % (0-2); EOSINOPHILS ABSOLUTE AUTO 0.06 K/mm3 (0.00-0.68); EOSINOPHILS PERCENT AUTO 1 % (0-6); Hematocrit 38.4 % (33.0-51.0); Hemoglobin 12.6 g/dL (11.5-16.0); IMMATURE GRAN ABSOLUTE AUTO 0.07 K/mm3 (0.00-0.10); IMMATURE GRAN PERCENT AUTO 1 % (0-1); LYMPHOCYTES ABSOLUTE AUTO 1.71 K/mm3 (0.84-5.20); LYMPHOCYTES PERCENT AUTO 19 % (21-46); MONOCYTES ABSOLUTE AUTO 0.87 K/mm3 (0.16-1.47); MONOCYTES PERCENT AUTO 10 % (4-13); Mean Corpuscular HGB 29.2 pg (26.0-34.0); Mean Corpuscular HGB Conc 32.8 g/dL (31.5-36.5); Mean Corpuscular Volume 89 fL (80-100); Mean Platelet Volume 10.1 fL (9.1-12.4); NEUTROPHILS ABSOLUTE AUTO 6.11 K/mm3 (1.96-9.15); NEUTROPHILS PERCENT AUTO 69 % (41-73); Platelet Count 240 K/mm3 (150-400); RDW Coefficient Variation 14.4 % (11.7-14.2); RDW Standard Deviation 46.8 fL (35.1-46.3); Red Blood Cell Count 4.31 M/mm3 (3.80-5.20); White Blood Cell Count 8.85 K/mm3 (4.00-11.30)
== END 2022-12-07 05:00 | disposition home or self-care (01) ==
LOC: ER 00:01
PROVIDERS: Student in an Organized Health Care Education/Training Program
DX: N30.90 Cystitis, unspecified without hematuria (principal); I50.9 Heart failure, unspecified; Z91.018 Allergy to other foods; Z79.899 Other long term (current) drug therapy
CPT/HCPCS: 74177; 80053; 81003; 85025; J1885; J2405; Q9967

== ENCOUNTER 2023-02-08 11:39 | Day surgery (SDC) | payer OTHER ==
[2023-02-08] VITALS (15 sets, daily range): BP systolic 94–140; BP diastolic 50–83
[~2023-02-08] VITALS: Ht 188 cm; Wt 109.7 kg
--- NOTE | 2023-02-08 12:16 | NUR ---
History, Chart, Medications and Allergies reviewed before start of procedure. Lungs clear T/O to Auscultation. Patient confirms NPO status and agrees with scheduled surgery. Pre-Op teaching done. Pt verbalizes understanding. Patient States Post-Procedure ride home has been arranged.
--- NOTE | 2023-02-08 13:10 | NUR ---
02/08/23 Radha Campa HISTORY, CHART, MEDICATIONS AND ALLERGIES REVIEWED BEFORE START OF PROCEDURE. PATIENT CONFIRMS NPO STATUS AND AGREES WITH SCHEDULED PROCEDURE. 3-LEAD EKG REVIEWED WITH PHYSICIAN PRIOR TO START OF PROCEDURE. MONITOR INTACT WITH CONTINUOUS PULSE OXIMETRY,CAPNOGRAPHY, 3-LEAD EKG, INTERMITTENT BP. SUPPLEMENTAL O2 TO BE TITRATED THROUGHOUT PROCEDURE TO MAINTAIN O2 SATURATION ABOVE 90%. PATIENT DETERMINED TO BE ASA APPROPRIATE FOR PROPOFOL SEDATION PRIOR TO START OF PROCEDURE BY DR. ANTONIO.
--- NOTE | 2023-02-08 14:02 | NUR ---
Discharge instructions reviewed with patient. Patient verbalizes understanding. Copy given to patient to take home. Discharged via wheelchair to private car for ride home.
== END 2023-02-08 22:39 | disposition home or self-care (01) ==
LOC: ORSCMMR 11:39 → ORD 13:00 → ORSCMMR 13:00 → ORSCSDS 06-02 15:30
PROVIDERS: Internal Medicine Gastroenterology
PROC: 0DB68ZX Excision of Stomach, Via Natural or Artificial Opening Endoscopic, Diagnostic (ICD-10-PCS; principal; 2023-02-08 13:00)
PROC: 0DB98ZX Excision of Duodenum, Via Natural or Artificial Opening Endoscopic, Diagnostic (ICD-10-PCS; principal; 2023-02-08 13:00)
DX: K21.9 Gastro-esophageal reflux disease without esophagitis (principal); R11.0 Nausea; K29.70 Gastritis, unspecified, without bleeding; R10.9 Unspecified abdominal pain; Z79.899 Other long term (current) drug therapy
CPT/HCPCS: 88305; 88342; J2250; J2405; J2704; J7120

== ENCOUNTER → 2023-02-09 | Outpatient (CLI) | payer OTHER | END | disposition home or self-care (01) | LOC: LAB 16:57 → LAB SHORT 16:57 | DX: R10.9 Unspecified abdominal pain (principal); R11.0 Nausea | CPT/HCPCS: 87338 ==

== ENCOUNTER → 2023-02-15 | Outpatient (CLI) | payer OTHER | END | disposition home or self-care (01) | LOC: LAB 17:33 → LAB SHORT 17:33 | DX: R30.0 Dysuria (principal) | CPT/HCPCS: 87077; 87086; 87186 ==

== ENCOUNTER 2023-03-20 05:06 | Emergency (ER) | payer OTHER ==
[~2023-03-20] VITALS: Ht 188 cm; Wt 105.7 kg
[2023-03-20 07:07] VITALS: BP 114/87
== END 2023-03-20 07:26 | disposition home or self-care (01) ==
LOC: ER 05:06
DX: T45.0X1A Poisoning by antiallergic and antiemetic drugs, accidental (unintentional), initial encounter (principal); F19.10 Other psychoactive substance abuse, uncomplicated; Z91.018 Allergy to other foods; Z79.899 Other long term (current) drug therapy; I50.9 Heart failure, unspecified
CPT/HCPCS: 93005; 93010; 99284-25

== ENCOUNTER → 2023-07-07 | Outpatient (CLI) | payer OTHER | END | disposition home or self-care (01) | LOC: LAB 19:13 → LAB SHORT 19:13 | DX: R30.0 Dysuria (principal) | CPT/HCPCS: 87077; 87086; 87186 ==

== ENCOUNTER 2024-04-11 07:43 | Day surgery (SDC) | payer OTHER ==
[~2024-04-11 07:43] MED LIST changes: +BUPROPION XL150 M1 PO
[2024-04-11] MEDS ORDERED: Metoprolol Tartrate 1 MG/ML 5 ML VIAL IV ONE (12:58)
== END 2024-04-12 05:14 | disposition home or self-care (01) ==
LOC: CT 07:43
DX: R07.89 Other chest pain (principal); M25.519 Pain in unspecified shoulder; M54.12 Radiculopathy, cervical region; Z91.018 Allergy to other foods; Z79.899 Other long term (current) drug therapy
CPT/HCPCS: 72052; 73030; 75574; Q9967

== ENCOUNTER → 2024-06-19 | Outpatient (CLI) | payer OTHER | LOC: LAB SHORT 17:13 → LAB 17:13 | DX: R30.0 Dysuria (principal) | CPT/HCPCS: 87077; 87086; 87186 ==

== ENCOUNTER → 2024-08-14 | Outpatient (CLI) | payer OTHER ==
[2024-08-14 17:26] LABS: CHOL/HDL RATIO 3.3; Cholesterol 137 mg/dL (50-200); HDL Cholesterol 42 mg/dL (>39); LDL/HDL RATIO 1.5; Low Density Lipoprotein Chol 63 mg/dL (0-110); Triglycerides 162 mg/dL (30-140); Very Low Density Lipoprot Chol 32 mg/dL (6-28)
[2024-08-14 17:31] LABS: Prolactin 10.4 ng/mL
[2024-08-15 19:01] LABS: HIV 1,2 COMBO ANTIGEN/ANTIBODY Negative (Negative)
[2024-08-15 19:12] LABS: HEPATITIS C AB CIA INTERP Negative (Negative); HEPATITIS C ANTIBODY CIA INDEX 0.09 IV
[2024-08-16 09:59] LABS: HEPATITIS B SURFACE ANTIGEN Negative (Negative)
== END | disposition home or self-care (01) ==
LOC: LAB SHORT 13:51 → LAB 13:51
PROVIDERS: Family Medicine
DX: Z11.3 Encounter for screening for infections with a predominantly sexual mode of transmission (principal); E66.9 Obesity, unspecified; Z87.890 Personal history of sex reassignment
CPT/HCPCS: 80061; 83036; 84146; 84443; 86803; 87340; 87389

== ENCOUNTER → 2024-10-23 | Outpatient (CLI) | payer OTHER | END | disposition home or self-care (01) | LOC: LAB SHORT 07:55 → LAB 07:55 | DX: D49.2 Neoplasm of unspecified behavior of bone, soft tissue, and skin (principal) | CPT/HCPCS: 88304 ==

== ENCOUNTER → 2025-04-15 | Outpatient (CLI) | payer MEDICARE, OTHER | LOC: LAB SHORT 17:48 → LAB 17:48 | DX: R30.0 Dysuria (principal) | CPT/HCPCS: 87077; 87086; 87186 ==